=== PATIENT | male | born 1950 | race African-American/Black ===

== ENCOUNTER 2020-01-24 05:39 | Inpatient (IN) | payer MEDICARE ==
[2020-01-24] VITALS (36 sets, daily range): BP systolic 76–173; BP diastolic 47–97; Ht 167.6 cm; Wt 70.3 kg
[~2020-01-24] VITALS: Ht 167.6 cm; Wt 70.3 kg
--- NOTE | ~2020-01-24 | EC ---
PATIENT:KACI FRANCISCO DATE OF SERVICE: 01/24/20 SEX: M MEDICAL RECORD: [id number] DATE OF : [birth year] LOC[place] [place] AGE OF PATIENT: 69 ADMISSION DATE: 01/24/20 REFERRING PHYSICIAN: INTERPRETING PHYSICIAN: LONNY SANCHEZ MD ECHOCARDIOGRAM REPORT ECHO CHARGES 4 ECHO COMPLETE Date: 01/24/20 CLINICAL DIAGNOSIS: POST CODE ECHOCARDIOGRAPHIC MEASUREMENTS (adult normal given) AC root (d.<3.7cm) 3.2 cm LV Septum d (<1.2 cm> 1.0 cm Valve Excursion 1.8 cm LV Septum (systole) 1.1 cm Left Atria (s.<4.0cm> 3.7 cm LVPW d(<1.2cm) 0.8 cm RV (d.<2.3cm) 2.8 cm LVPW (sytole) 0.9 cm LV diastole(<5.6CM) 3.8 cm MV E-F(>70mm/sec) cm LV systole 3.1 cm LVOT Diameter 2.1 cm MV exc.(>10mm) cm Est.ejection fraction (50-75%) % DOPPLER: LVIT cm/sec A 33 cm/sec E 55 cm/sec LA cm/sec RVSP 19.1 mmHg LVOT 137 cm/sec AOP1/2T m/s Asc. Ao 158 cm/sec RVOT 121 cm/sec RA cm/sec PA 82 cm/sec AV Gradient Peak 10.0 mmHg AV Mean 5.4 mmHg AV Area 3.2 cm MV Gradient Peak 6.1 mmHg MV Mean 2.7 mmHg MV Area cm COMMENTS: Professor Sculpture: Srinivasan [facility] Paperboard Boxes Estimator: 1 Dr. Sanchez TAPE# PACS Pericardial Effusion N DATE OF SERVICE: 01/24/2020 PROCEDURE: Echocardiogram. FINDINGS: 1. Left ventricular chamber size is within normal limits. Left ventricular systolic function is lower limits of normal at 45% to 50%. 2. Left atrium, right atrium, right ventricle chamber sizes are within normal limits. 3. Valvular structures have normal structure and motion. ECHOCARDIOGRAM REPORT [id number] KACI FRANCISCO 4. Doppler interrogation reveals no significant valvular insufficiency or stenosis. Pulmonary systolic pressure is estimated at 19 mmHg. 5. No evidence of pericardial effusion or left ventricular thrombus. TRANSINT:[id number] Voice Confirmation ID: [id number] DOCUMENT ID: [id number] LONNY SANCHEZ MD CC: [id number] DICTATION DATE: 01/24/20 1245 LIVESTOCK INSPECTOR: 01/24/20 1727 ADM IN [place] [id number] [place] [id number]
--- NOTE | ~2020-01-24 | CN ---
PATIENT NAME:KACI FRANCISCO MEDICAL RECORD: [id number] : 54 LOCATION:[facility].2303 ADMIT DATE: 01/24/20 ACCOUNT: [id number] CONSULTING PHYSICIAN: LONNY HINTON MD REFERRING PHYSICIAN: KENYON FORREST MD DATE OF CONSULTATION: 01/26/2020 DIAGNOSES: 1. Atrial fibrillation with rapid ventricular response. 2. Non-Q-wave myocardial infarction. 3. Diabetes. 4. Hypertension. 5. Peripheral vascular disease. 6. Status post arrest. HISTORY OF PRESENT ILLNESS: This is a 69-year-old gentleman who was transferred here from [place] following cardiopulmonary arrest. He last night went into atrial fibrillation with rapid ventricular response. His troponin was initially normal. His troponin has now gone to 3. His heart is back in rhythm. He has not received any cardiac medications. He was just extubated today. Swallow study has been yet to be obtained. He does have a metabolic encephalopathy and questionable hypoxic brain injury as well as renal failure in conjunction with the cardiopulmonary arrest that he sustained. PHYSICAL EXAMINATION: CONSTITUTIONAL/GENERAL APPEARANCE: Well nourished, well developed, appears stated age. EYES: Lids and conjunctivae noninjected. No discharge. No pallor. ENT: Lips within normal limit. No cyanosis. No pallor. NECK: Carotid arteries, bilateral normal upstroke. No bruits. No thrills. No jugular venous pressure or distention. CERVICAL LYMPH NODES: Nontender. Nonenlarged. THYROID: Not enlarged. No nodules. CARDIOVASCULAR: Precordial exam, nondisplaced. No heaves or pericardial thrills. Rate and rhythm, regular. Heart sounds, normal S1, normal S2. No S3, no gallop, no rub. Systolic murmur, not heard. Diastolic murmur, not heard. RESPIRATORY: Respiratory effort, unlabored. Normal curvature. No thoracic deformity. No chest wall tenderness. Percussion, resonant. Auscultation, clear. No wheezes, no rales, no rhonchi. ABDOMEN: Soft, nondistended, nontender. No abdominal pain, no vomiting and normal appetite. MUSCULOSKELETAL: No joint tenderness, normal gait, normal tone. SKIN: Warm and dry. OVERALL IMPRESSION: Most likely his cardiopulmonary arrest was secondary to arrhythmia. He is not on antiarrhythmic medications. We will give him Cordarone full IV load and start Cordarone as soon as he takes p.o. We will get an echocardiogram as well. TRANSINT:[id number] Voice Confirmation ID: [id number] DOCUMENT ID: [id number] CONSULT REPORT [id number] KACI FRANCISCO JEFFREY MD CC: [id number] DICTATION DATE: 01/26/20 1155 PERSONAL PROPERTY APPRAISER: 01/26/20 1424 ADM IN [facility] [address] [place] [address]
[2020-01-24 06:03] LABS: BASOPHILS 0.1 % (0-2); EOSINOPHILS 0 % (0-7); HEMATOCRIT 41.3 % (42.0-54.0); IMMATURE GRANULOCYTES 0.9 % (0-5); LYMPHOCYTES 11.9 % (15-50); MCH 25.8 pg (26.0-34.0); MCHC 31.5 g/dL (31.0-37.0); MCV 82.1 fL (80.0-100.0); MEAN PLATELET VOLUME 9.6 fL (7.4-10.4); MONOCYTES 3.8 % (2-11); NEUTROPHILS 83.3 % (40-80); PLATELET COUNT 223 10x3/uL (130-400); RBC 5.03 10x6/uL (4.20-6.10); RDW 16.9 % (11.5-14.5); WBC 14.1 10x3/uL (4.8-10.8)
[2020-01-24] MEDS ORDERED: ZESTRIL40 MG PO (06:30)
[2020-01-24] MEDS ORDERED: LEVEMIR IN100 UNITS/ SC (06:31)
--- NOTE | 2020-01-24 06:32 | NUR ---
PT FROM [facility] ([place] PRESENTS C/O VOMITIN FOR LAST SEVERAL DAYS AND C/O BACK PAIN. FOUND TO BE IN RENAL FAILURE W/BUN OF 57, CREATININE 3.3, AND POTASSIUM 10.2. AT 0417 PT CODED IN THEIR ER. PT RECEIVED 3MG OF EPI 1:71082, 450MG AMIODARONE, 1G CALCIUM CHLORIDE, 2 AMPS SODIUM BICARB, 2 AMPS D50W, AND 10U OF INSULIN IV. AT 0433 ROSC ACHIEVED. PT ARRIVED HERE VIA SURVIVAL FLIGHT. ENROUTE HAD RECEIVED 3 X 100MG DOSES OF KETAMINE. ARRIVES INTUBATED W/7.5 ET TUBE AND 18GA IN LEFT EXTERNAL JUGULAR.
[2020-01-24 06:46] LABS: ALBUMIN 3.4 g/dL (3.4-5.0); ANION GAP 25.1 mmol/L (8-16); BILIRUBIN - TOTAL 0.54 mg/dL (0.2-1.3); CALCIUM 9.7 mg/dL (8.5-10.1); CREATININE - SERUM 3.7 mg/dL (0.6-1.3); PROTEIN - SERUM 7.3 g/dL (6.4-8.2)
[2020-01-24 06:51] LABS: POTASSIUM - SERUM 8.1 mmol/L (3.5-5.1)
[2020-01-24 06:52] LABS: BILIRUBIN NEGATIVE (NEGATIVE); GLUCOSE 1000 mg/dL (NEGATIVE); KETONE NEGATIVE (NEGATIVE); NITRITE NEGATIVE (NEGATIVE); SPECIFIC GRAVITY 1.015 (1.005-1.020); UROBILINOGEN NORMAL (NORMAL)
[2020-01-24 06:53] LABS: UDS - AMPHET NEGATIVE QUAL (NEGATIVE); UDS - BARB NEGATIVE QUAL (NEGATIVE); UDS - BENZO NEGATIVE QUAL (NEGATIVE); UDS - COCAINE NEGATIVE QUAL (NEGATIVE); UDS - OPIATE NEGATIVE QUAL (NEGATIVE); UDS - PCP NEGATIVE QUAL (NEGATIVE); UDS - THC NEGATIVE QUAL (NEGATIVE)
[2020-01-24 06:58] LABS: BACTERIA FEW /hpf (NEGATIVE); EPITHELIAL CELLS 0-5 /hpf (0-5); RED CELLS - URINE 0-5 /hpf (0-5); WHITE CELLS - URINE RARE /hpf (NEGATIVE)
--- NOTE | 2020-01-24 07:33 | NUR ---
NG TUBE INSERTED PRIOR TO ARRIVAL BY [place] STAFF.
--- NOTE | 2020-01-24 07:34 | NUR ---
REPORT TO KELLEY MADRID.
--- NOTE | 2020-01-24 07:45 | NUR ---
PT ARRIVED TO ICU ON ER STRETCHER. ACCOMPANIED BY TWO NURSES AND RT. MOVED OVER TO ICU BED AND ATTACHED TO ICU MONITORS. ADMISSION ASSESSMENT COMPLETED. PT NON RESPONSIVE TO PAINFUL STIMULI. SEDATION TURNED OFF TO SEE IF PT WILL WAKE UP. SINUS TACH ON THE MONITOR. WILL CONTINUE TO MONITOR
--- NOTE | 2020-01-24 08:15 | NUR ---
ARIANE ARGUETA IN ROOM WITH PT. UPDATE GIVEN. WILL CONTINUE TO MONITOR
--- NOTE | 2020-01-24 08:18 | NUR ---
BRITANY FONTENOT CALLED TO GET CONSENT FOR CENTRAL LINE PLACEMENT BY DR DAVIDSON. CONSENT GIVEN AND VERIFIED BY TWO NURSES. DR DAVIDSON PAGED.
--- NOTE | 2020-01-24 08:22 | NUR ---
DR DAVIDSON ON UNIT. CONSULTATION ABOUT CENTRAL LINE PLACEMENT DISCUSSED. WILL CONTINUE TO MONITOR
--- NOTE | 2020-01-24 09:30 | NUR ---
MAINTAINENCE IN ROOM TO FIX BROKEN SINK.
--- NOTE | 2020-01-24 09:35 | NUR ---
DR FORREST IN ROOM. UPDATE GIVEN. WILL CONTINUE TO MONITOR
--- NOTE | 2020-01-24 09:53 | NUR ---
PT ABOUT TO RECEIVE DIALYSIS. BEING HOOKED UP TO DIALYSIS MACHINE. WILL CONTINUE TO MONITOR
[2020-01-24 10:13] LABS: % SATURATION 31 % (15-55); IRON 63 ug/dl (35-150); TOTAL IRON BIND CAPACITY 199 ug/dl (260-445); UNSAT IRON BIND CAPACITY 136 ug/dl (150-375)
[2020-01-24 13:34] LABS: CALCIUM 8.4 mg/dL (8.5-10.1); CHOL - HDL RATIO 3.5 ratio (2.3-4.9); MAGNESIUM - SERUM 2.2 mg/dL (1.8-2.4); PHOSPHOROUS 6.2 mg/dL (2.5-4.9)
[2020-01-24 13:36] LABS: ANION GAP 24.6 mmol/L (8-16); CREATININE - SERUM 2.3 mg/dL (0.6-1.3); POTASSIUM - SERUM 4.6 mmol/L (3.5-5.1)
--- NOTE | 2020-01-24 14:04 | NUR ---
FAMILY IN ROOM. UPDATE GIVEN. WILL CONTINUE TO MONITOR
--- NOTE | 2020-01-24 17:39 | NUR ---
LAB CALLED POSITIVE FLU A ON THIS PT. PT ALREADY ON DROPLET ISOLATION PROTOCOL
--- NOTE | 2020-01-24 18:35 | MORECARE ---
CASE MANAGEMENT DISCHARGE SUMMARY PATIENT: KACI FRANCISCO UNIT: [id number] ADM DATE: 01/24/20 AGE: 69 : 52 SEX: M ROOM/BED: D.2303 AUTHOR: JENNIFER DAY PHYSICIAN: REFERRING PHYSICIAN: KENYON FORREST MD DATE OF SERVICE: 01/24/20 Discharge Plan Patient Name: KACI FRANCISCO Facility: [facility]:[place] : 1950 Planned Disposition: Home Anticipated Discharge Date: Discharge Date: Expected LOS: Initial Reviewer: [email or web address] Initial Review Date: 01/24/2020 Generated: 01/24/20 7:35 pm Patient Name: KACI FRANCISCO Page 94006 at 1835 All edits/amendments must be made on the electronic document DICTATION DATE: 01/24/201834 FISHER: PAUL 01/24/201834 RPT#: [id number] DC DATE: STATUS: ADM IN [facility] [address] [place] [address] END OF REPORT
--- NOTE | 2020-01-24 18:43 | MORECARE ---
CASE MANAGEMENT DISCHARGE SUMMARY PATIENT: KACI FRANCISCO UNIT: [id number] ADM DATE: 01/24/20 AGE: 69 : 52 SEX: M ROOM/BED: D.2303 AUTHOR: JENNIFER DAY PHYSICIAN: REFERRING PHYSICIAN: KENYON FORREST MD DATE OF SERVICE: 01/24/20 Discharge Plan Patient Name: KACI FRANCISCO [facility] [facility] 1950 Planned Disposition: Home Anticipated Discharge Date: Discharge Date: Expected LOS: Initial Reviewer: [email or web address] Initial Review Date: 01/24/2020 Generated: 01/24/20 7:42 pm DCPIA - Discharge Planning Initial Assessment Updated by [email or web address]: Mago Loaiza on 01/24/20 6:38 pm * Is the patient Alert and Oriented? No * How many steps to enter\exit or inside your home? 4-6 * PCP [facility] * Pharmacy [facility] * Preadmission Environment Home with Family * ADLs Independent * Other Equipment UNKNOWN * List name and contact numbers for known caregivers / representatives who currently or will assist patient after discharge: BRITANY FONTENOT - GIRLFRIEND- [phone] TANVI FRANCISCO - SON - [phone] BETHANY Castro DAUGHTER- [phone] * Verbal permission to speak to the caregivers and representatives has been obtained from the patient. N/A * Community resources currently utilized None * Additional services required to return to the preadmission environment? No * Can the patient safely return to the preadmission environment? Yes * Has this patient been hospitalized within the prior 30 days at any hospital? No Last DP export: 01/24/20 5:35 pm Patient Name: KACI FRANCISCO Page 54481 at 1843 All edits/amendments must be made on the electronic document DICTATION DATE: 01/24/201841 CONCRETE PAVER: PAUL 01/24/201841 RPT#: [id number] DC DATE: STATUS: ADM IN [facility] [address] [place] [address] END OF REPORT
--- NOTE | 2020-01-24 18:50 | MORECARE ---
CASE MANAGEMENT DISCHARGE SUMMARY PATIENT: KACI FRANCISCO UNIT: [id number] ADM DATE: 01/24/20 AGE: 69 : 52 SEX: M ROOM/BED: D.2303 AUTHOR: SHAY,DOC PHYSICIAN: REFERRING PHYSICIAN: KENYON FORREST MD DATE OF SERVICE: 01/24/20 Discharge Plan Patient Name: KACI FRANCISCO Facility: [facility]:[place] : 1950 Planned Disposition: Home Anticipated Discharge Date: Discharge Date: Expected LOS: Initial Reviewer: [email or web address] Initial Review Date: 01/24/2020 Generated: 01/24/20 7:50 pm Comments DCP- Discharge Planning Updated by [email or web address]: Mago Loaiza on 01/24/20 5:[address] Patient Name: KACI FRANCISCO Admission Status: ER Accout number: [id number] Admission Date: 01-24-2020 : 1950 Admission Diagnosis: Attending: KENYON FORREST Current LOS: 1 Anticipated DC Date: Planned Disposition: Home Primary Insurance: MEDICARE A & B Discharge Planning Comments: CM met with patient's daughter Tory to complete initial dc planning assessment. CM educated patient on the CM role and verbal consent given by patient to complete assessment. CM verified patient's address, phone number, and emergency contact phone numbers. Patient lives at home with girlfriend Britany At discharge patient plans to return home. Uncertain of discharge needs at this time. Tory stated she didn't know if patient has medical equipment at home or home health. Tory stated that Britany is on her way here. CM gave Tory a card with CM information on it to have Britany to call. CM will continue to follow and will assist as needed with dc plans/needs. Sand Slinger Operator: Mago Loaiza DCPIA - Discharge Planning Initial Assessment Updated by [email or web address]: Mago Loaiza on 01/24/20 6:38 pm * Is the patient Alert and Oriented? No * How many steps to enter\exit or inside your home? 4-6 * PCP [facility] * Pharmacy [facility] * Preadmission Environment Home with Family * ADLs Independent * Other Equipment UNKNOWN * List name and contact numbers for known caregivers / representatives who currently or will assist patient after discharge: BRITANY FONTENOT - GIRLFRIEND- [phone] TANVI FRANCISCO - SON - [phone] TORY FRANCISCO - DAUGHTER- [phone] * Verbal permission to speak to the caregivers and representatives has been obtained from the patient. N/A * Community resources currently utilized None * Additional services required to return to the preadmission environment? No * Can the patient safely return to the preadmission environment? Yes * Has this patient been hospitalized within the prior 30 days at any hospital? No Last DP export: 01/24/20 5:43 pm Patient Name: KACI FRANCISCO Page 01262 at 1850 All edits/amendments must be made on the electronic document DICTATION DATE: 01/24/201849 ELECTRICAL TROUBLESHOOTER: PAUL 01/24/201849 RPT#: [id number] DC DATE: STATUS: ADM IN [facility] [address] [place] [address] END OF REPORT
--- NOTE | 2020-01-24 19:15 | NUR ---
Report taken from Shannan Camacho RN. Patient care assumed at this time. Patient on vent A/C rate of 20, Fi02 100%, TV 500, PEEP of 5. Pupils are equal but sluggish to react. The patient arouses to deep stimuli however does not follow commands. No sedation in use. RT IJ trialysis. LT EJ 18g infusing Bicarb gtt at 75 ml/hr. Gordon cath in place. NGT to RT nare. Bed in low position. Monitoring equipment on and functioning properly. VSS. Will continue to monitor closely.
--- NOTE | 2020-01-24 21:05 | NUR ---
Family at bedside. Updated about patient condition and discussed further plan of care with son. Denies any other questions at this time.
[2020-01-25] VITALS (24 sets, daily range): BP systolic 86–142; BP diastolic 53–80
--- NOTE | 2020-01-25 | NUR ---
Patient with a finger stick blood sugar of 387. 16 units of humulin R to be given SC.
--- NOTE | 2020-01-25 01:34 | NUR ---
Patient resting comfortably on vent. No obvious signs of distress noted. Arouses to verbal stimuli however does not follow commands. VSS. Will continue to monitor.
--- NOTE | 2020-01-25 04:18 | NUR ---
RT at bedside at this time. Patient appears to be resting comfortably on vent with no obvious signs of distress noted. Opens eyes to verbal stimuli. VSS. Will continue to monitor.
--- NOTE | 2020-01-25 05:42 | NUR ---
Bath and full linen change complete at this time. Patient tolerated well. Bed in low position.
[2020-01-25 06:22] LABS: HEMATOCRIT 37.4 % (42.0-54.0); HEMOGLOBIN 12.1 g/dL (13.5-17.5); MCH 25.3 pg (26.0-34.0); MCHC 32.4 g/dL (31.0-37.0); MCV 78.2 fL (80.0-100.0); MEAN PLATELET VOLUME 10.5 fL (7.4-10.4); PLATELET COUNT 133 10x3/uL (130-400); RBC 4.78 10x6/uL (4.20-6.10); RDW 16.3 % (11.5-14.5); WBC 21.3 10x3/uL (4.8-10.8)
[2020-01-25 06:27] LABS: BILIRUBIN - TOTAL 0.47 mg/dL (0.2-1.3); CALCIUM 7.7 mg/dL (8.5-10.1); PROTEIN - SERUM 6.3 g/dL (6.4-8.2)
--- NOTE | 2020-01-25 06:59 | NUR ---
NOTIFIED DR. PALMA ABOUT POTASSIUM RESULT OF 7. STATED HE WILL PUT ORDERS IN. WILL CONTINUE TO MONITOR.
[2020-01-25 09:16] LABS: EOSINOPHILS 1 % (0-7); LYMPHOCYTES 13 % (15-50); MONOCYTES 9 % (2-11); NEUTROPHILS 75 % (40-80); PLATELET ESTIMATE NORMAL
[2020-01-25 09:17] LABS: ANISOCYTOSIS OCC
[2020-01-25 10:10] LABS: ANA REFLEX - DBL STRANDED DNA <1 IU/mL (0-9); ANA REFLEX - DIRECT Negative (Negative)
[2020-01-25 11:09] LABS: HEPATITIS C ANTIBODY <0.1 S/CO RAT (0.0-0.9)
--- NOTE | 2020-01-25 15:26 | MORECARE ---
CASE MANAGEMENT DISCHARGE SUMMARY PATIENT: KACI FRANCISCO UNIT: [id number] ADM DATE: 01/24/20 AGE: 69 : 52 SEX: M ROOM/BED: D.2303 AUTHOR: SHAY,DOC PHYSICIAN: REFERRING PHYSICIAN: KENYON FORREST MD DATE OF SERVICE: 01/25/20 Discharge Plan Patient Name: KACI FRANCISCO Facility: [facility]:[place] : 1950 Planned Disposition: Home Anticipated Discharge Date: Discharge Date: Expected LOS: Initial Reviewer: [email or web address] Initial Review Date: 01/24/2020 Generated: 01/25/20 4:26 pm Comments DCP- Discharge Planning Updated by [email or web address]: Mago Loaiza on 01/25/20 2:[address] CM received call this am from Britany patient's girlfriend. She stated that the patient has a walker, cane and wheelchair at home. He did not have any home health services prior to admission. She stated that patient has not been in the hospital in last 30days. CM will continue to follow and assist as needed with discharge planning / needs. DCP- Discharge Planning Updated by [email or web address]: Mago Loaiza on 01/24/20 5:[address] Patient Name: KACI FRANCISCO Admission Status: ER Accout number: [id number] Admission Date: 01-24-2020 : 1950 Admission Diagnosis: Attending: KENYON FORREST Current LOS: 1 Anticipated DC Date: Planned Disposition: Home Primary Insurance: MEDICARE A & B Discharge Planning Comments: CM met with patient's daughter Tory to complete initial dc planning assessment. CM educated patient on the CM role and verbal consent given by patient to complete assessment. CM verified patient's address, phone number, and emergency contact phone numbers. Patient lives at home with girlfriend Britany At discharge patient plans to return home. Uncertain of discharge needs at this time. Tory stated she didn't know if patient has medical equipment at home or home health. Tory stated that Britany is on her way here. CM gave Tory a card with CM information on it to have Britany to call. CM will continue to follow and will assist as needed with dc plans/needs. Edge Trimmer: Mago Loaiza DCPIA - Discharge Planning Initial Assessment Updated by [email or web address]: Mago Loaiza on 01/24/20 6:38 pm * Is the patient Alert and Oriented? No * How many steps to enter\exit or inside your home? 4-6 * PCP [facility] * Pharmacy [facility] * Preadmission Environment Home with Family * ADLs Independent * Other Equipment UNKNOWN * List name and contact numbers for known caregivers / representatives who currently or will assist patient after discharge: BRITANY FONTENOT - GIRLFRIEND- [phone] TANVI Castor SON - [phone] TORY FRANCISCO - DAUGHTER- [phone] * Verbal permission to speak to the caregivers and representatives has been obtained from the patient. N/A * Community resources currently utilized None * Additional services required to return to the preadmission environment? No * Can the patient safely return to the preadmission environment? Yes * Has this patient been hospitalized within the prior 30 days at any hospital? No Last DP export: 01/24/20 5:50 pm Patient Name: KACI FRANCISCO Page 40268 at 1526 All edits/amendments must be made on the electronic document DICTATION DATE: 01/25/201525 CRITICAL CARE UNIT NURSE: PAUL 01/25/201525 RPT#: [id number] DC DATE: STATUS: ADM IN [facility] [address] [place] [address] END OF REPORT
[2020-01-25 17:08] LABS: SPE - A/G RATIO 1.2 (0.7-1.7); SPE - ALBUMIN 3.4 g/dL (2.9-4.4); SPE - ALPHA-1 GLOBULIN 0.2 g/dL (0.0-0.4); SPE - ALPHA-2 GLOBULIN 0.8 g/dL (0.4-1.0); SPE - GAMMA GLOBULIN 0.9 g/dL (0.4-1.8); SPE - M-SPIKE Not Observed g/dL (Not Observed); SPE - TOTAL PROTEIN 6.3 g/dL (6.0-8.5)
--- NOTE | 2020-01-25 21:25 | NUR ---
Patient repositioned for comfort to his back. Denies needs at this time. Bed in low position and call light within reach.
--- NOTE | 2020-01-25 23:27 | NUR ---
Renal paged. EKG shows atrial fib with RVR. No known past history.
--- NOTE | 2020-01-25 23:48 | NUR ---
Renal paged a second time. No call back recieved for first page.
[2020-01-26] VITALS (24 sets, daily range): BP systolic 103–196; BP diastolic 63–93
--- NOTE | 2020-01-26 00:54 | NUR ---
Cardiology consulted per renal. Cardiology paged at this time.
--- NOTE | 2020-01-26 01:25 | NUR ---
Page not returned by Dr Sanchez however patient has converted back into a normal sinus rhythm without any intervention. Rate of 96. Will continue to monitor.
--- NOTE | 2020-01-26 05:12 | NUR ---
Patient had large loose brown stool. Full linen change complete at this time. Turned and repositioned for comfort. Bed locked and in low position. Call light within reach.
[2020-01-26 05:27] LABS: BASOPHILS 0 % (0-2); EOSINOPHILS 0 % (0-7); HEMATOCRIT 33.3 % (42.0-54.0); HEMOGLOBIN 10.7 g/dL (13.5-17.5); IMMATURE GRANULOCYTES 0.3 % (0-5); LYMPHOCYTES 10.6 % (15-50); MCH 25.5 pg (26.0-34.0); MCHC 32.1 g/dL (31.0-37.0); MCV 79.3 fL (80.0-100.0); MEAN PLATELET VOLUME 10.8 fL (7.4-10.4); MONOCYTES 3.4 % (2-11); NEUTROPHILS 85.7 % (40-80); PLATELET COUNT 119 10x3/uL (130-400); RDW 16.1 % (11.5-14.5); WBC 18.7 10x3/uL (4.8-10.8)
[2020-01-26 06:02] LABS: ALBUMIN 3.1 g/dL (3.4-5.0); BILIRUBIN - TOTAL 0.8 mg/dL (0.2-1.3); CALCIUM 7.9 mg/dL (8.5-10.1); CREATININE - SERUM 3.8 mg/dL (0.6-1.3); PROTEIN - SERUM 6.1 g/dL (6.4-8.2); VANCOMYCIN - RANDOM 13.6 ug/mL (10.0-20.0)
[2020-01-26 06:14] LABS: ANION GAP 14.1 mmol/L (8-16); POTASSIUM - SERUM 5.1 mmol/L (3.5-5.1)
[2020-01-26 06:53] LABS: LIPASE 119 U/L (73-393)
[2020-01-26 06:59] LABS: AMYLASE - SERUM 335 U/L (25-115)
[2020-01-26 08:38] LABS: INR 1.4 (0.85-1.17)
[2020-01-26 12:16] LABS: ANION GAP 11.7 mmol/L (8-16); CALCIUM 7.8 mg/dL (8.5-10.1); CARBON DIOXIDE 28.3 mmol/L (21.0-32.0); CREATININE - SERUM 3.8 mg/dL (0.6-1.3)
--- NOTE | 2020-01-26 12:36 | NUR ---
Nutrition follow-up: Pt extubated / NPO until cleared for diet by speech Labs reviewed Wt: 155# When diet advances recommend renal RDN following.
--- NOTE | 2020-01-26 13:30 | NUR ---
REC'D REPORT AND REUSMED CARE, SLEEPING, AROUSEABLE TO VERBAL STIMULI, VSS, O2 VIA NC AT 4L, FOLLOWS SIMPLE COMMANDS, DENIES PAIN, WILL CONTINUE WITH POC
--- NOTE | 2020-01-26 14:30 | NUR ---
PC FROM DR FARNSWORTH, STATED THAT PATIENT HAS DVT AND WOULD LIKE TO START TREATMENT, AFTER SPEAKING WITH DR. FORREST WHO WAS IN UNIT, DECISION MADE TO START HEPARIN GTT, NEW ORDER GIVEN
--- NOTE | 2020-01-26 15:00 | NUR ---
4000 UNIT BOLUS IV HEPARIN, AND HEPRAIN GTT INITIATED AT 800 UNITS/HR PER ORDER
[2020-01-26 15:24] LABS: HEMATOCRIT 32.9 % (42.0-54.0); HEMOGLOBIN 10.4 g/dL (13.5-17.5); MCH 25.1 pg (26.0-34.0); MCHC 31.6 g/dL (31.0-37.0); MCV 79.5 fL (80.0-100.0); MEAN PLATELET VOLUME 9.8 fL (7.4-10.4); RBC 4.14 10x6/uL (4.20-6.10); RDW 16.2 % (11.5-14.5); WBC 17.1 10x3/uL (4.8-10.8)
[2020-01-26 15:26] LABS: INR 1.37 (0.85-1.17); PROTIME 16.7 SECONDS (11.6-15.0)
--- NOTE | 2020-01-26 16:00 | NUR ---
FAMILY AT BEDSIDE, STATUS UPDATED, NO OTHER NEEDS AT THIS TIME, I AND O'S COMPLETED
--- NOTE | 2020-01-26 17:41 | NUR ---
spoke with Nesha Dunbar renal PC ANALYST and order confirmed to hold dialysis today.
--- NOTE | 2020-01-26 18:00 | NUR ---
CALLED TO ROOM BEDPAN PLACED, SMALL DIARRHEA STOOL TO [place], SKIN CARE AND LINEN CHANGE COMPLETED
--- NOTE | 2020-01-26 19:00 | NUR ---
REPORT RECEIVED, PT DISORINETED TO TIME AND PLACE. REORIENTED NEEDED. PT RESTING IN BED, NO ACUTE DISTRESS NOTED. PIV IN LT HAND, RT IJ TRIALYSIS PORT INFUSING, SEE IV FLOWSHEET. ASSESSMENT COMPLETED, SEE FLOWSHEET. WILL CONTINUE TO MONITOR.
--- NOTE | 2020-01-26 21:00 | NUR ---
PT FAMILY IN ROOM AT THIS TIME, WILL CONTINUE TO MONITOR.
--- NOTE | 2020-01-26 23:00 | NUR ---
REPOSITIONED FOR COMFORT, NO ACUTE DISTRESS NOTED. WILL CONTINUE TO MONITOR.
[2020-01-27] VITALS (12 sets, daily range): BP systolic 120–147; BP diastolic 65–83
--- NOTE | 2020-01-27 01:00 | NUR ---
PT RESTING IN BED, DISORIENTED TO PLACE AND SITUATION.
--- NOTE | 2020-01-27 03:00 | NUR ---
PT RESTING IN BED AT THIS TIME, NO ACUTE DISTRESS NOTED
--- NOTE | 2020-01-27 05:00 | NUR ---
PT LAYING IN BED, PERIODS OF APNEA NOTED WHILE SLEEPING. WILL CONTINUE TO MONITOR.
[2020-01-27 05:58] LABS: BASOPHILS 0.1 % (0-2); EOSINOPHILS 0.4 % (0-7); HEMATOCRIT 32.1 % (42.0-54.0); HEMOGLOBIN 10.1 g/dL (13.5-17.5); IMMATURE GRANULOCYTES 0.3 % (0-5); LYMPHOCYTES 12.9 % (15-50); MCH 24.9 pg (26.0-34.0); MCHC 31.5 g/dL (31.0-37.0); MCV 79.1 fL (80.0-100.0); MEAN PLATELET VOLUME 10.2 fL (7.4-10.4); MONOCYTES 4.4 % (2-11); NEUTROPHILS 81.9 % (40-80); PLATELET COUNT 116 10x3/uL (130-400); RBC 4.06 10x6/uL (4.20-6.10); WBC 13.8 10x3/uL (4.8-10.8)
[2020-01-27 05:59] LABS: ALBUMIN 2.7 g/dL (3.4-5.0); BILIRUBIN - TOTAL 0.6 mg/dL (0.2-1.3); CALCIUM 7.7 mg/dL (8.5-10.1); CARBON DIOXIDE 24.6 mmol/L (21.0-32.0); MAGNESIUM - SERUM 2.2 mg/dL (1.8-2.4); PHOSPHOROUS 3.4 mg/dL (2.5-4.9); PROTEIN - SERUM 5.9 g/dL (6.4-8.2); VANCOMYCIN - RANDOM 13.3 ug/mL (10.0-20.0)
[2020-01-27 06:02] LABS: ANION GAP 13.6 mmol/L (8-16); POTASSIUM - SERUM 4.2 mmol/L (3.5-5.1)
[2020-01-27 15:10] LABS: UPE RAND - ALBUMIN 37.7 % (()); UPE RAND - ALPHA 1 GLOBULIN 7.9 % (()); UPE RAND - BETA GLOBULIN 27.9 % (()); UPE RAND - GAMMA GLOBULIN 12.5 % (())
[2020-01-28] VITALS: BP 135/75
[2020-01-28 04:00] VITALS: BP 149/77
[2020-01-28 06:34] LABS: BASOPHILS 0.3 % (0-2); EOSINOPHILS 1.2 % (0-7); HEMATOCRIT 34.3 % (42.0-54.0); HEMOGLOBIN 11.1 g/dL (13.5-17.5); IMMATURE GRANULOCYTES 0.2 % (0-5); LYMPHOCYTES 14.5 % (15-50); MCH 25.5 pg (26.0-34.0); MCHC 32.4 g/dL (31.0-37.0); MCV 78.7 fL (80.0-100.0); MEAN PLATELET VOLUME 10.1 fL (7.4-10.4); MONOCYTES 8.3 % (2-11); NEUTROPHILS 75.5 % (40-80); PLATELET COUNT 120 10x3/uL (130-400); RBC 4.36 10x6/uL (4.20-6.10); RDW 15.9 % (11.5-14.5)
[2020-01-28 07:06] LABS: ALBUMIN 2.9 g/dL (3.4-5.0); BILIRUBIN - TOTAL 0.71 mg/dL (0.2-1.3); CALCIUM 7.7 mg/dL (8.5-10.1); CARBON DIOXIDE 21.1 mmol/L (21.0-32.0); POTASSIUM - SERUM 4.1 mmol/L (3.5-5.1); PROTEIN - SERUM 6.5 g/dL (6.4-8.2); VANCOMYCIN - RANDOM 13.6 ug/mL (10.0-20.0)
[2020-01-28 07:09] LABS: CREATININE - SERUM 2.2 mg/dL (0.6-1.3)
--- NOTE | 2020-01-28 07:25 | NUR ---
ASSESSMENT DONE. DENIES NEEDS
[2020-01-28 09:10] VITALS: BP 159/81
--- NOTE | 2020-01-28 11:52 | MORECARE ---
CASE MANAGEMENT DISCHARGE SUMMARY PATIENT: KACI FRANCISCO UNIT: [id number] ADM DATE: 01/24/20 AGE: 69 : 54 SEX: M ROOM/BED: D.2134 AUTHOR: SHAY,DOC PHYSICIAN: REFERRING PHYSICIAN: KENYON FORREST MD DATE OF SERVICE: 01/28/20 Discharge Plan Patient Name: KACI FRANCISCO Facility: [facility]:[place] : 1950 Planned Disposition: Home Anticipated Discharge Date: Discharge Date: Expected LOS: Initial Reviewer: [email or web address] Initial Review Date: 01/24/2020 Generated: 01/28/20 12:51 pm Comments DCP- Discharge Planning Updated by [email or web address]: Mago Loaiza on 01/28/20 10:[address] CM called and spoke with Tanvi Francisco (son) [phone] regarding senior living placement upon discharge. Tanvi stated that he would like for him to go to [facility] in [facility]. CM contacted [place] [phone] with [facility]. She stated to fax clinical to her [phone] and she would forward to [facility] and she would come to see patient. CM will fax records. CM will will follow and assist as needed with discharge planning / needs. DCP- Discharge Planning Updated by [email or web address]: Mago Loaiza on 01/25/20 2:[address] CM received call this am from Britany patient's girlfriend. She stated that the patient has a walker, cane and wheelchair at home. He did not have any home health services prior to admission. She stated that patient has not been in the hospital in last 30days. CM will continue to follow and assist as needed with discharge planning / needs. DCP- Discharge Planning Updated by [email or web address]: Mago Loaiza on 01/24/20 5:[address] Patient Name: KACI FRANCISCO Admission Status: ER Accout number: [id number] Admission Date: 01-24-2020 : 1950 Admission Diagnosis: Attending: KENYON FORREST Current LOS: 1 Anticipated DC Date: Planned Disposition: Home Primary Insurance: MEDICARE A & B Discharge Planning Comments: CM met with patient's daughter Tory to complete initial dc planning assessment. CM educated patient on the CM role and verbal consent given by patient to complete assessment. CM verified patient's address, phone number, and emergency contact phone numbers. Patient lives at home with girlfriend Britany At discharge patient plans to return home. Uncertain of discharge needs at this time. Tory stated she didn't know if patient has medical equipment at home or home health. Tory stated that Britany is on her way here. CM gave Tory a card with CM information on it to have Britany to call. CM will continue to follow and will assist as needed with dc plans/needs. Rn Outpatient Surgery: Mago Loaiza DCPIA - Discharge Planning Initial Assessment Updated by [id number]: Mago Loaiza on 01/24/20 6:38 pm * Is the patient Alert and Oriented? No * How many steps to enter\exit or inside your home? 4-6 * PCP [facility] * Pharmacy [facility] * Preadmission Environment Home with Family * ADLs Independent * Other Equipment UNKNOWN * List name and contact numbers for known caregivers / representatives who currently or will assist patient after discharge: BRITANY FONTENOT - GIRLFRIEND- [phone] TANVI FRANCISCO - SON - [phone] TORY FRANCISCO - DAUGHTER- [phone] * Verbal permission to speak to the caregivers and representatives has been obtained from the patient. N/A * Community resources currently utilized None * Additional services required to return to the preadmission environment? No * Can the patient safely return to the preadmission environment? Yes * Has this patient been hospitalized within the prior 30 days at any hospital? No Last DP export: 01/25/20 2:26 p Patient Name: KACI FRANCISCO Page 62457 at 1152 All edits/amendments must be made on the electronic document DICTATION DATE: 01/28/20 1151 SEWER DIGGER: PAUL 01/28/20 1151 RPT#: [id number] DC DATE: STATUS: ADM IN [facility] [address] [place] [address] END OF REPORT
--- NOTE | 2020-01-28 12:15 | MORECARE ---
CASE MANAGEMENT DISCHARGE SUMMARY PATIENT: KACI FRANCISCO UNIT: [id number] ADM DATE: 01/24/20 AGE: 69 : 52 SEX: M ROOM/BED: D.2134 AUTHOR: SHAY,DOC PHYSICIAN: REFERRING PHYSICIAN: KENYON FORREST MD DATE OF SERVICE: 01/28/20 Discharge Plan Patient Name: KACI FRANCISCO Facility: [facility]:[place] : 1950 Planned Disposition: Home Anticipated Discharge Date: Discharge Date: Expected LOS: Initial Reviewer: [email or web address] Initial Review Date: 01/24/2020 Generated: 01/28/20 1:15 pm Comments DCP- Discharge Planning Updated by [email or web address]: Mago Loaiza on 01/28/20 10:[address] CM called and spoke with Tanvi Francisco (son) [phone] regarding halfway placement upon discharge. Tanvi stated that he would like for him to go to [facility] in [facility]. CM contacted [place] [phone] with [facility]. She stated to fax clinical to her [phone] and she would forward to [facility] and she would come to see patient. CM will fax records. CM will will follow and assist as needed with discharge planning / needs. DCP- Discharge Planning Updated by [email or web address]: Mago Loaiza on 01/25/20 2:[address] CM received call this am from Britany patient's girlfriend. She stated that the patient has a walker, cane and wheelchair at home. He did not have any home health services prior to admission. She stated that patient has not been in the hospital in last 30days. CM will continue to follow and assist as needed with discharge planning / needs. DCP- Discharge Planning Updated by [email or web address]: Mago Loaiza on 01/24/20 5:[address] Patient Name: KACI FRANCISCO Admission Status: ER Accout number: [id number] Admission Date: 01-24-2020 : 1950 Admission Diagnosis: Attending: KENYON FORREST Current LOS: 1 Anticipated DC Date: Planned Disposition: Home Primary Insurance: MEDICARE A & B Discharge Planning Comments: CM met with patient's daughter Tory to complete initial dc planning assessment. CM educated patient on the CM role and verbal consent given by patient to complete assessment. CM verified patient's address, phone number, and emergency contact phone numbers. Patient lives at home with girlfriend Britany At discharge patient plans to return home. Uncertain of discharge needs at this time. Tory stated she didn't know if patient has medical equipment at home or home health. Tory stated that Britany is on her way here. CM gave Tory a card with CM information on it to have Britany to call. CM will continue to follow and will assist as needed with dc plans/needs. Facepiece Line Supervisor: Mago Loaiza DCPIA - Discharge Planning Initial Assessment Updated by [email or web address]: Mago Loaiza on 01/24/20 6:38 pm * Is the patient Alert and Oriented? No * How many steps to enter\exit or inside your home? 4-6 * PCP [facility] * Pharmacy [facility] * Preadmission Environment Home with Family * ADLs Independent * Other Equipment UNKNOWN * List name and contact numbers for known caregivers / representatives who currently or will assist patient after discharge: BRITANY FONTENOT - GIRLFRIEND- [phone] TANVI FRANCISCO - SON - [phone] TORY FRANCISCO - DAUGHTER- [phone] * Verbal permission to speak to the caregivers and representatives has been obtained from the patient. N/A * Community resources currently utilized None * Additional services required to return to the preadmission environment? No * Can the patient safely return to the preadmission environment? Yes * Has this patient been hospitalized within the prior 30 days at any hospital? No External Providers External Provider: Muna Garzon Next Contact Date: Service Request Date: Service Type: Resolution: Reviewer: Comments: Coverage Notice Reviewer: [id number] - Mago Loaiza Notice Issued Date-Time: 01/28/2020 11:10 Notice Type: Patient Choice Letter Notice Delivered To: Family Member Relationship to Patient: Son Blasting Clay Miner Name: TANVI FRANCISCO Delivery Method: PHONE - Phone Rhina Days: Prior Verbal Notification: Recipient Understood Notice: Yes Recipient Signature: Yes Med Rec Note Co-signed by Attending: Coverage Notice Comment: KENA Phillips DP export: 01/28/20 10:52 a Patient Name: KACI FRANCISCO Page 80610 at 1215 All edits/amendments must be made on the electronic document DICTATION DATE: 01/28/20 1215 BODY BUILDER APPRENTICE: APUL 01/28/20 1215 RPT#: [id number] DC DATE: STATUS: ADM IN [facility] [address] [place] [address] END OF REPORT
--- NOTE | 2020-01-28 12:51 | NUR ---
Nutrition Follow-up: Pt reports eating >50% of breakfast this AM. Noted ST reports oropharyngeal dysphagia and recs puree with honey thick liquids. Diet: Diabetic, Puree, Honey Thick Liquids No new wt; last wt: 155# (01/23) Last BM: 01/26 per chart Labs noted: Glu 174, Ca 7.7, Alb 2.9 Meds noted: NS @ 50, Humulin, Protonix -Encourage PO intake and honor food preferences within diet restrictions. -Need new wt; noted daily wts ordered. -RD following.
[2020-01-28 12:54] VITALS: BP 140/81
--- NOTE | 2020-01-28 15:43 | NUR ---
I have reviewed this patient and I concur with the Shift Assessment completed by the Licensed Practical Nurse today this shift.
[2020-01-28 17:50] VITALS: BP 157/82
--- NOTE | 2020-01-28 19:10 | NUR ---
BEDSIDE REPORT RECEIVED FROM DAY SHIFT, PT CARE ASSUMED. INTRODUCED SELF AND WROTE NAME ON BOARD. PT SITTING UP IN BED, WATCHING TV, AAOX4. DENIES ANY NEEDS AT THIS TIME. BED IN LOWEST POSITION, SR X2, CALL LIGHT WITHIN REACH. WILL CONTINUE TO MONITOR.
[2020-01-28 20:30] VITALS: BP 146/78
[2020-01-29 00:30] VITALS: BP 158/88
[2020-01-29 04:30] VITALS: BP 143/80
[2020-01-29 06:16] LABS: ALBUMIN 2.9 g/dL (3.4-5.0); ANION GAP 16.2 mmol/L (8-16); BILIRUBIN - TOTAL 0.61 mg/dL (0.2-1.3); CALCIUM 7.8 mg/dL (8.5-10.1); CARBON DIOXIDE 21.7 mmol/L (21.0-32.0); POTASSIUM - SERUM 3.9 mmol/L (3.5-5.1); PROTEIN - SERUM 6.8 g/dL (6.4-8.2); VANCOMYCIN - RANDOM 11.3 ug/mL (10.0-20.0)
[2020-01-29 06:25] LABS: HEMATOCRIT 33.9 % (42.0-54.0); HEMOGLOBIN 10.9 g/dL (13.5-17.5); MCH 25.5 pg (26.0-34.0); MCHC 32.2 g/dL (31.0-37.0); MCV 79.2 fL (80.0-100.0); MEAN PLATELET VOLUME 10.2 fL (7.4-10.4); RBC 4.28 10x6/uL (4.20-6.10); RDW 15.9 % (11.5-14.5); WBC 12.5 10x3/uL (4.8-10.8)
[2020-01-29 06:26] LABS: PLATELET COUNT 152 10x3/uL (130-400)
[2020-01-29 06:29] LABS: CREATININE - SERUM 1.6 mg/dL (0.6-1.3)
[2020-01-29 07:39] LABS: EOSINOPHILS 3 % (0-7); LYMPHOCYTES 25 % (15-50); MONOCYTES 12 % (2-11); NEUTROPHILS 60 % (40-80); PLATELET ESTIMATE NORMAL
[2020-01-29 08:58] VITALS: BP 147/77
--- NOTE | 2020-01-29 11:08 | NUR ---
HEPARIN INCREASED BY 100 UNITS PER LAB AND PROTOCAL. PT A/O X4. NO S/S OF DISTRESS. VSS. WILL CONTINUE TO MONITOR. BED LOW CALL LIGHT WITHIN REACH.
--- NOTE | 2020-01-29 11:40 | NUR ---
APTT ORDER PUT IN FOR 1630 FOR RATE CHANGE SIX HOUR PROTOCOL.
[2020-01-29 12:20] VITALS: BP 153/69
--- NOTE | 2020-01-29 12:43 | NUR ---
I have reviewed this patient and I concur with the Shift Assessment completed by the Licensed Practical Nurse today this shift.
--- NOTE | 2020-01-29 15:18 | NUR ---
ARU NOTE- Patient and family contacted and they stated the desire to go to an ARU closer to where they live in [place].
--- NOTE | 2020-01-29 17:02 | NUR ---
PT HAD BED BATH AND FULL LINEN CHANGE. PT A/O WITH SOME CONFUSION. VSS. FAMILY AT BEDSIDE. NO S/S OF DISTRESS AT THIS TIME. BED LOW CALL LIGHT WITHIN REACH, WILL CONTINUE TO MONITOR.
--- NOTE | 2020-01-29 17:31 | NUR ---
PT PTT 56.7 UPED 100UNITS PER PROTOCOL. NEW LAB DRAW PUT IN FOR 2229.
[2020-01-29 17:56] VITALS: BP 136/58
--- NOTE | 2020-01-29 19:10 | NUR ---
BEDSIDE REPORT RECEIVED FROM DAY SHIFT, PT CARE ASSUMED. WROTE NAME ON BOARD. PT SITTING UP IN BED, WATCHING TV AND VISITING WITH SISTER AT BEDSIDE, AAOX4. DENIES ANY NEEDS AT THIS TIME. BED IN LOWEST POSITION, SR X2, CALL LIGHT WITHIN REACH. WILL CONTINUE TO MONITOR.
[2020-01-29 20:00] VITALS: BP 126/68
[2020-01-30] VITALS: BP 167/84
[2020-01-30 04:00] VITALS: BP 136/76
[2020-01-30 07:04] LABS: BASOPHILS 0.3 % (0-2); EOSINOPHILS 2.2 % (0-7); HEMATOCRIT 31.7 % (42.0-54.0); HEMOGLOBIN 10.2 g/dL (13.5-17.5); IMMATURE GRANULOCYTES 0.9 % (0-5); LYMPHOCYTES 23.8 % (15-50); MCH 25.2 pg (26.0-34.0); MCHC 32.2 g/dL (31.0-37.0); MCV 78.5 fL (80.0-100.0); MEAN PLATELET VOLUME 10.1 fL (7.4-10.4); MONOCYTES 8.5 % (2-11); NEUTROPHILS 64.3 % (40-80); RBC 4.04 10x6/uL (4.20-6.10); WBC 13.5 10x3/uL (4.8-10.8)
[2020-01-30 07:05] LABS: PLATELET COUNT 184 10x3/uL (130-400)
[2020-01-30 07:08] LABS: ANION GAP 13.2 mmol/L (8-16); CALCIUM 8.2 mg/dL (8.5-10.1); CARBON DIOXIDE 21.5 mmol/L (21.0-32.0); CREATININE - SERUM 1.4 mg/dL (0.6-1.3); POTASSIUM - SERUM 3.7 mmol/L (3.5-5.1); VANCOMYCIN - RANDOM 11.3 ug/mL (10.0-20.0)
--- NOTE | 2020-01-30 07:55 | NUR ---
RECIEVED REPORT. PATIENT IS AWAKE AND ALERT AND DENIES ANY NEEDS AT THIS TIME.
[2020-01-30 10:00] VITALS: BP 147/80
--- NOTE | 2020-01-30 10:56 | NUR ---
HEPARIN DRIP DC ORDERED. APTT WAS 74.1
[2020-01-30 12:20] VITALS: BP 156/62
[2020-01-30 16:37] VITALS: BP 159/77
--- NOTE | 2020-01-30 19:33 | NUR ---
I HAVE ANSWERED LIGHT TWICE FOR NEEDS BED LOW AND LOCKED AND CALL LIGHT IN REACH. PT IS UP TO A CHAIR. SISTER IS IN THE ROOM SHES NOT WEARING PPE. I DID ENCOURAGE HER TO DO SO
[2020-01-30 20:00] VITALS: BP 146/85
[2020-01-31 00:30] VITALS: BP 131/74
[2020-01-31 04:00] VITALS: BP 140/68
[2020-01-31 05:01] LABS: BASOPHILS 0.2 % (0-2); EOSINOPHILS 2.5 % (0-7); HEMATOCRIT 31.3 % (42.0-54.0); LYMPHOCYTES 23.5 % (15-50); MCH 25.3 pg (26.0-34.0); MCHC 31.9 g/dL (31.0-37.0); MEAN PLATELET VOLUME 9.7 fL (7.4-10.4); MONOCYTES 9.3 % (2-11); NEUTROPHILS 63.5 % (40-80); PLATELET COUNT 209 10x3/uL (130-400); RBC 3.96 10x6/uL (4.20-6.10); WBC 12.1 10x3/uL (4.8-10.8)
--- NOTE | 2020-01-31 05:06 | NUR ---
I have reviewed this patient and I concur with the Shift Assessment completed by the Licensed Practical Nurse today this shift.
[2020-01-31 05:18] LABS: ANION GAP 12.6 mmol/L (8-16); CALCIUM 8.1 mg/dL (8.5-10.1); CARBON DIOXIDE 23.1 mmol/L (21.0-32.0); CREATININE - SERUM 1.3 mg/dL (0.6-1.3); POTASSIUM - SERUM 3.7 mmol/L (3.5-5.1); VANCOMYCIN - RANDOM 11.3 ug/mL (10.0-20.0)
--- NOTE | 2020-01-31 07:27 | NUR ---
PATIENT IS AWAKE AND ALERT. HE HAD A CRITICAL HIGH APTT. ORDERED A REDRAW.
[2020-01-31 08:34] VITALS: BP 179/82
--- NOTE | 2020-01-31 10:28 | MORECARE ---
CASE MANAGEMENT DISCHARGE SUMMARY PATIENT: KACI FRANCISCO UNIT: [id number] ADM DATE: 01/24/20 AGE: 69 : 52 SEX: M ROOM/BED: D.2134 AUTHOR: SHAY,DOC PHYSICIAN: REFERRING PHYSICIAN: KENYON FORREST MD DATE OF SERVICE: 01/31/20 Discharge Plan Patient Name: KACI FRANCISCO Facility: [facility]:[place] : 1950 Planned Disposition: Fpc Facility Anticipated Discharge Date: 01/31/20 Discharge Date: Expected LOS: 7 Initial Reviewer: [email or web address] Initial Review Date: 01/24/2020 Generated: 01/31/20 11:27 am Comments DCP- Discharge Planning Updated by [email or web address]: Mago Loaiza on 01/28/20 10:[address] CM called and spoke with Tanvi Francisco (son) [phone] regarding snf placement upon discharge. Tanvi stated that he would like for him to go to [facility] in [facility]. CM contacted [place] [phone] with [facility]. She stated to fax clinical to her [phone] and she would forward to [facility] and she would come to see patient. CM will fax records. CM will will follow and assist as needed with discharge planning / needs. DCP- Discharge Planning Updated by [email or web address]: Mago Loaiza on 01/25/20 2:[address] CM received call this am from [facility] patient's girlfriend. She stated that the patient has a walker, cane and wheelchair at home. He did not have any home health services prior to admission. She stated that patient has not been in the hospital in last 30days. CM will continue to follow and assist as needed with discharge planning / needs. DCP- Discharge Planning Updated by [email or web address]: Mago Loaiza on 01/24/20 5:[address] Patient Name: KACI FRANCISCO Admission Status: ER Accout number: [id number] Admission Date: 01-24-2020 : 1950 Admission Diagnosis: Attending: KENYON FORREST Current LOS: 1 Anticipated DC Date: Planned Disposition: Home Primary Insurance: MEDICARE A & B Discharge Planning Comments: CM met with patient's daughter Tory to complete initial dc planning assessment. CM educated patient on the CM role and verbal consent given by patient to complete assessment. CM verified patient's address, phone number, and emergency contact phone numbers. Patient lives at home with girlfriend Britany At discharge patient plans to return home. Uncertain of discharge needs at this time. Tory stated she didn't know if patient has medical equipment at home or home health. Tory stated that Britany is on her way here. CM gave Tory a card with CM information on it to have Britany to call. CM will continue to follow and will assist as needed with dc plans/needs. Tooth Cutter Pinion: Mago Loaiza DCPIA - Discharge Planning Initial Assessment Updated by [email or web address]: Mago Loaiza on 01/24/20 6:38 pm * Is the patient Alert and Oriented? No * How many steps to enter\exit or inside your home? 4-6 * PCP [facility] * Pharmacy [facility] * Preadmission Environment Home with Family * ADLs Independent * Other Equipment UNKNOWN * List name and contact numbers for known caregivers / representatives who currently or will assist patient after discharge: BRITANY FONTENOT - GIRLFRIEND- [phone] TANVI FRANCISCO - SON - [phone] TORY FRANCISCO - DAUGHTER- [phone] * Verbal permission to speak to the caregivers and representatives has been obtained from the patient. N/A * Community resources currently utilized None * Additional services required to return to the preadmission environment? No * Can the patient safely return to the preadmission environment? Yes * Has this patient been hospitalized within the prior 30 days at any hospital? No Coverage Notice Reviewer: [id number] - Mago Loaiza Notice Issued Date-Time: 01/28/2020 11:10 Notice Type: Patient Choice Letter Notice Delivered To: Family Member Relationship to Patient: Son Speeder Tender Name: TANVI FRANCISCO Delivery Method: PHONE - Phone Rhina Days: Prior Verbal Notification: Recipient Understood Notice: Yes Recipient Signature: Yes Med Rec Note Co-signed by Attending: Coverage Notice Comment: [facility]- [facility] Phillips DP export: 01/28/20 11:15 a Patient Name: KACI FRANCISCO Page [phone] at 1028 All edits/amendments must be made on the electronic document DICTATION DATE: 01/31/20 1027 COUNCILOR: PAUL 01/31/20 1027 RPT#: [id number] DC DATE: STATUS: ADM IN [facility] [address] [place] [address] END OF REPORT
--- NOTE | 2020-01-31 10:36 | MORECARE ---
CASE MANAGEMENT DISCHARGE SUMMARY PATIENT: KACI FRANCISCO UNIT: [id number] ADM DATE: 01/24/20 AGE: 69 : 52 SEX: M ROOM/BED: D.2134 AUTHOR: SHAY,DOC PHYSICIAN: REFERRING PHYSICIAN: KENYON FORREST MD DATE OF SERVICE: 01/31/20 Discharge Plan Patient Name: KACI FRANCISCO Facility: [facility]:[place] : 1950 Planned Disposition: Usp Facility Anticipated Discharge Date: 01/31/20 Discharge Date: Expected LOS: 7 Initial Reviewer: [email or web address] Initial Review Date: 01/24/2020 Generated: 01/31/20 11:35 am Comments DCP- Discharge Planning Updated by [email or web address]: Fermin Castillo on 01/31/20 9:[address] Patient Name: KACI FRANCISCO Encounter No: [id number] : 1950 Primary Insurance: MEDICARE A & B Anticipated DC Date: 01-31-2020 Planned Disposition: Usp Facility External Planned Provider: [facility], MEDICARE REHAB BED DCP follow-up note: FREDDY FAXED UPDATE TO [facility] AT [phone]. FREDDY WAITING ADMISSION DETERMINATION FROM [facility]. SOULEYMANE Roque DCP- Discharge Planning Updated by [email or web address]: Mago Loaiza on 01/28/20 10:[address] CM called and spoke with Tanvi Francisco (son) [phone] regarding [facility] placement upon discharge. Tanvi stated that he would like for him to go to [facility] in [facility]. FREDDY contacted [place] [phone] with [facility]. She stated to fax clinical to her [phone] and she would forward to [place] and she would come to see patient. CM will fax records. CM will will follow and assist as needed with discharge planning / needs. DCP- Discharge Planning Updated by [email or web address]: Mago Loaiza on 01/25/20 2:[address] CM received call this am from [place] patient's girlfriend. She stated that the patient has a walker, cane and wheelchair at home. He did not have any home health services prior to admission. She stated that patient has not been in the hospital in last 30days. CM will continue to follow and assist as needed with discharge planning / needs. DCP- Discharge Planning Updated by [id number]: Mago Loaiza on 01/24/20 5:[address] Patient Name: KACI FRANCISCO Admission Status: ER Accout number: [id number] Admission Date: 01-24-2020 : 1950 Admission Diagnosis: Attending: KENYON FORREST Current LOS: 1 Anticipated DC Date: Planned Disposition: Home Primary Insurance: MEDICARE A & B Discharge Planning Comments: CM met with patient's daughter Tory to complete initial dc planning assessment. CM educated patient on the CM role and verbal consent given by patient to complete assessment. CM verified patient's address, phone number, and emergency contact phone numbers. Patient lives at home with girlfriend Gracie At discharge patient plans to return home. Uncertain of discharge needs at this time. Tory stated she didn't know if patient has medical equipment at home or home health. Tory stated that Gracie is on her way here. CM gave Tory a card with CM information on it to have Gracie to call. CM will continue to follow and will assist as needed with dc plans/needs. Furniture Dipper: Mago Loaiza DCPIA - Discharge Planning Initial Assessment Updated by [email or web address]: Mago Loaiza on 01/24/20 6:38 pm * Is the patient Alert and Oriented? No * How many steps to enter\exit or inside your home? 4-6 * PCP [facility] * Pharmacy [facility] * Preadmission Environment Home with Family * ADLs Independent * Other Equipment UNKNOWN * List name and contact numbers for known caregivers / representatives who currently or will assist patient after discharge: GRACIE FONTENOT - GIRLFRIEND- [phone] TANVI FRANCISCO - SON - [phone] TORY FRANCISCO - DAUGHTER- [phone] * Verbal permission to speak to the caregivers and representatives has been obtained from the patient. N/A * Community resources currently utilized None * Additional services required to return to the preadmission environment? No * Can the patient safely return to the preadmission environment? Yes * Has this patient been hospitalized within the prior 30 days at any hospital? No External Providers External Provider: Muna Arrieta Contact Date: 01/31/2020 Service Request Date: Service Type: Resolution: Reviewer: Comments: Coverage Notice Reviewer: [email or web address] Matthew Loaiza Notice Issued Date-Time: 01/28/2020 11:10 Notice Type: Patient Choice Letter Notice Delivered To: Family Member Relationship to Patient: Son Labor Relations Worker Name: ATNVI FRANCISCO Delivery Method: PHONE - Phone Rhina Days: Prior Verbal Notification: Recipient Understood Notice: Yes Recipient Signature: Yes Med Rec Note Co-signed by Attending: Coverage Notice Comment: KENA BARRIOS Last DP export: 01/31/20 9:28 a Patient Name: KACI FRANCISCO Page 51088 at 1036 All edits/amendments must be made on the electronic document DICTATION DATE: 01/31/20 1035 AIRWAYS CONTROL SPECIALIST: PAUL 01/31/20 1035 RPT#: [id number] DC DATE: STATUS: ADM IN [facility] [address] [place] [address] END OF REPORT
[2020-01-31 11:00] VITALS: BP 160/78
--- NOTE | 2020-01-31 16:16 | MORECARE ---
CASE MANAGEMENT DISCHARGE SUMMARY PATIENT: KACI FRANCISCO UNIT: [id number] ADM DATE: 01/24/20 AGE: 69 : 54 SEX: M ROOM/BED: D.2134 AUTHOR: SHAY,DOC PHYSICIAN: REFERRING PHYSICIAN: KENYON FORREST MD DATE OF SERVICE: 01/31/20 Discharge Plan Patient Name: KACI FRANCISCO Facility: [facility]:[place] : 1950 Planned Disposition: Detention Facility Anticipated Discharge Date: 01/31/20 Discharge Date: Expected LOS: 7 Initial Reviewer: [id number] Initial Review Date: 01/24/2020 Generated: 01/31/20 5:16 pm Comments DCP- Discharge Planning Updated by [email or web address]: Maurice Ness on 01/31/20 3:[address] Patient Name: KACI FRANCISCO Encounter No: [id number] : 1950 Primary Insurance: MEDICARE A & B Anticipated DC Date: 01-31-2020 Planned Disposition: Detention Facility External Planned Provider: [facility], MEDICARE REHAB BED DCP follow-up note: CM FAXED UPDATE TO [facility] AT [phone]. CM WAITING ADMISSION DETERMINATION FROM [facility] FOR [facility]. Maurice Ness, CASE MANAGEMENT Appended by Maurice Ness on 01/31/2020 16:12 CDT: CM RECEIVED CALL FROM [facility], THEY HAVE QUESTIONS REGARDING PT FOR REHAB ADMIT CONSIDERATION: -WILL PT HAVE DIAGNOSIS OF DEMENTIA BASED ON RESULTS OF HEAD CT? - WHY WAS PT'S POTASSIUM SO HIGH? -WILL PATIENT NEED DIALYSIS IN FUTURE? -WILL DIALYSIS CATHETER BE MOVED? - WILL PT REQUIRE IV ANTIBIOTICS IN [facility] REHAB? - WILL CENTRAL LINE BE REMOVED? - WILL PATIENT HAVE FOLLOW UP APPOINTMENTS SCHEDULED FOR THE TIME PT IS IN REHAB AT [facility], IF ACCEPTED BY FACILITY? CM PROVIDED QUESTIONS TO ALFREDO GONSALES, FAXED UPDATED "5 DAY MAR" TO [facility] AT [phone]. CM CONTINUES TO WAIT ADMISSION DETERMINATION FROM [facility]. MAURICE NESS, CASE MANAGEMENT DCP- Discharge Planning Updated by [email or web address]: Mago Loaiza on 01/28/20 10:[address] CM called and spoke with Tanvi Francisco (son) [phone] regarding fdc placement upon discharge. Tanvi stated that he would like for him to go to [place] in [facility]. CM contacted Cynthia [phone] with [facility]. She stated to fax clinical to her [phone] and she would forward to [place] and she would come to see patient. CM will fax records. CM will will follow and assist as needed with discharge planning / needs. DCP- Discharge Planning Updated by [email or web address]: Mago Loaiza on 01/25/20 2:[address] CM received call this am from Gracie patient's girlfriend. She stated that the patient has a walker, cane and wheelchair at home. He did not have any home health services prior to admission. She stated that patient has not been in the hospital in last 30days. CM will continue to follow and assist as needed with discharge planning / needs. DCP- Discharge Planning Updated by [email or web address]: Mago Loaiza on 01/24/20 5:[address] Patient Name: KACI FRANCISCO Admission Status: ER Accout number: [id number] Admission Date: 01-24-2020 : 1950 Admission Diagnosis: Attending: KENYON FORREST Current LOS: 1 Anticipated DC Date: Planned Disposition: Home Primary Insurance: MEDICARE A & B Discharge Planning Comments: CM met with patient's daughter Tory to complete initial dc planning assessment. CM educated patient on the CM role and verbal consent given by patient to complete assessment. CM verified patient's address, phone number, and emergency contact phone numbers. Patient lives at home with girlfriend Gracie At discharge patient plans to return home. Uncertain of discharge needs at this time. Tory stated she didn't know if patient has medical equipment at home or home health. Tory stated that Gracie is on her way here. CM gave Tory a card with CM information on it to have Gracie to call. CM will continue to follow and will assist as needed with dc plans/needs. Mottler Machine Feeder: Mago Loaiza DCPIA - Discharge Planning Initial Assessment Updated by [email or web address]: Mago Loaiza on 01/24/20 6:38 pm * Is the patient Alert and Oriented? No * How many steps to enter\\exit or inside your home? 4-6 * PCP [facility] * Pharmacy [facility] * Preadmission Environment Home with Family * ADLs Independent * Other Equipment UNKNOWN * List name and contact numbers for known caregivers / representatives who currently or will assist patient after discharge: GRACIE FONTENOT - GIRLFRIEND- [phone] TANVI FRANCISCO - SON - [phone] TORY FRANCISCO - DAUGHTER- [phone] * Verbal permission to speak to the caregivers and representatives has been obtained from the patient. N/A * Community resources currently utilized None * Additional services required to return to the preadmission environment? No * Can the patient safely return to the preadmission environment? Yes * Has this patient been hospitalized within the prior 30 days at any hospital? No Coverage Notice Reviewer: [id number] Matthew Loaiza Notice Issued Date-Time: 01/28/2020 11:10 Notice Type: Patient Choice Letter Notice Delivered To: Family Member Relationship to Patient: Son Supervisor Scenic Arts Name: TANVI FRANCISCO Delivery Method: PHONE - Phone Rhina Days: Prior Verbal Notification: Recipient Understood Notice: Yes Recipient Signature: Yes Med Rec Note Co-signed by Attending: Coverage Notice Comment: KENA Phillips DP export: 01/31/20 9:36 a Patient Name: KACI FRANCISCO Page [id number] at 1616 All edits/amendments must be made on the electronic document DICTATION DATE: 01/31/20 1616 VP HUMAN RESOURCES: PAUL 01/31/20 1616 RPT#: [id number] DC DATE: STATUS: ADM IN [facility] [address] [place] [address] END OF REPORT
--- NOTE | 2020-01-31 19:20 | NUR ---
CONT TO OBSERVE ISOLATION FOR THE FLU PT DENIES OTHER NEEDS
[2020-01-31 20:00] VITALS: BP 174/87
[2020-02-01] VITALS: BP 160/77
[2020-02-01 04:00] VITALS: BP 165/62
[2020-02-01 05:26] LABS: BASOPHILS 0.1 % (0-2); EOSINOPHILS 2.8 % (0-7); HEMATOCRIT 32.6 % (42.0-54.0); HEMOGLOBIN 10.1 g/dL (13.5-17.5); IMMATURE GRANULOCYTES 0.8 % (0-5); LYMPHOCYTES 24.3 % (15-50); MCH 25.1 pg (26.0-34.0); MCV 80.9 fL (80.0-100.0); MEAN PLATELET VOLUME 9.5 fL (7.4-10.4); MONOCYTES 9.9 % (2-11); NEUTROPHILS 62.1 % (40-80); PLATELET COUNT 248 10x3/uL (130-400); RBC 4.03 10x6/uL (4.20-6.10); RDW 16.4 % (11.5-14.5); WBC 10.6 10x3/uL (4.8-10.8)
--- NOTE | 2020-02-01 05:35 | NUR ---
I have reviewed this patient and I concur with the Shift Assessment completed by the Licensed Practical Nurse today this shift.
[2020-02-01 05:42] LABS: ANION GAP 11.2 mmol/L (8-16); CARBON DIOXIDE 23.3 mmol/L (21.0-32.0); CREATININE - SERUM 1.3 mg/dL (0.6-1.3); POTASSIUM - SERUM 3.5 mmol/L (3.5-5.1)
[2020-02-01 08:29] VITALS: BP 170/80
--- NOTE | 2020-02-01 09:56 | MORECARE ---
CASE MANAGEMENT DISCHARGE SUMMARY PATIENT: KACI FRANCISCO UNIT: [id number] ADM DATE: 01/24/20 AGE: 69 : 54 SEX: M ROOM/BED: D.7964 AUTHOR: SHAY,DOC PHYSICIAN: REFERRING PHYSICIAN: KENYON FORREST MD DATE OF SERVICE: 02/01/20 Discharge Plan Patient Name: KACI FRANCISCO Facility: [facility]:[place] : 1950 Planned Disposition: Longterm Facility Anticipated Discharge Date: 01/31/20 Discharge Date: Expected LOS: 7 Initial Reviewer: [email or web address] Initial Review Date: 01/24/2020 Generated: 02/01/20 10:56 am Comments DCP- Discharge Planning Updated by [email or web address]: Maurice Ness on 02/01/20 8:[address] Patient Name: KACI FRANCISCO Encounter No: [id number] : 1950 Primary Insurance: MEDICARE A & B Anticipated DC Date: 01-31-2020 Planned Disposition: Longterm Facility External Planned Provider: [facility], MEDICARE REHAB BED DCP follow-up note: CM FAXED UPDATE TO [facility] AT [phone]. CM RECEIVED CALL FROM [facility], THEY HAVE QUESTIONS REGARDING PT FOR REHAB ADMIT CONSIDERATION: -WILL PT HAVE DIAGNOSIS OF DEMENTIA BASED ON RESULTS OF HEAD CT? - WHY WAS PT'S POTASSIUM SO HIGH? -WILL PATIENT NEED DIALYSIS IN FUTURE? -WILL DIALYSIS CATHETER BE MOVED? - WILL CENTRAL LINE BE REMOVED? - WILL PATIENT HAVE FOLLOW UP APPOINTMENTS SCHEDULED FOR THE TIME PT IS IN REHAB AT [facility], IF ACCEPTED BY FACILITY? CM WAS QUESTIONED REGARDING PT HAVING BEEN TESTED OR WILL PT BE TESTED FOR COVID19/ CM INFORMED [facility] THAT PT HAS NOT BEEN TESTED FOR COVID19 AND HAS NO SYMPTOMS. PT HAS BEEN TREATED FOR THE FLU WITH NO FURTHER SYPMPTOMS. CM PROVIDED QUESTIONS TO ALFREDO GARCES AND WILL NOTIFY FANNIE WHEN QUESTIONS HAVE BEEN ANSWERED. CM CONTINUES TO WAIT ADMISSION DETERMINATION FROM [facility]. MAURICE NESS, CASE MANAGEMENT DCP- Discharge Planning Updated by [id number]: Maurice Ness on 01/31/20 3:[address] Patient Name: KACI FRANCISCO Encounter No: [id number] : 1950 Primary Insurance: MEDICARE A & B Anticipated DC Date: 01-31-2020 Planned Disposition: Longterm Facility External Planned Provider: [facility] MEDICARE REHAB BED DCP follow-up note: FREDDY FAXED UPDATE TO [facility] AT [phone]. CM WAITING ADMISSION DETERMINATION FROM [facility] REH[facility]. Maurice Ness, CASE MANAGEMENT Appended by Maurice Ness on 01/31/2020 16:12 CDT: CM RECEIVED CALL FROM [facility], THEY HAVE QUESTIONS REGARDING PT FOR REHAB ADMIT CONSIDERATION: -WILL PT HAVE DIAGNOSIS OF DEMENTIA BASED ON RESULTS OF HEAD CT? - WHY WAS PT'S POTASSIUM SO HIGH? -WILL PATIENT NEED DIALYSIS IN FUTURE? -WILL DIALYSIS CATHETER BE MOVED? - WILL PT REQUIRE IV ANTIBIOTICS IN [facility] REHAB? - WILL CENTRAL LINE BE REMOVED? - WILL PATIENT HAVE FOLLOW UP APPOINTMENTS SCHEDULED FOR THE TIME PT IS IN REHAB AT [facility], IF ACCEPTED BY FACILITY? FREDDY PROVIDED QUESTIONS TO ALFREDO GONSALES, FAXED UPDATED "5 DAY MAR" TO [facility] AT [phone]. CM CONTINUES TO WAIT ADMISSION DETERMINATION FROM [facility]. MAURICE NESS, CASE MANAGEMENT DCP- Discharge Planning Updated by [id number]: Mago Loaiza on 01/28/20 10:[address] CM called and spoke with Tanvi Francisco (son) [phone] regarding group home placement upon discharge. Tanvi stated that he would like for him to go to [place] in [place] signed. FREDDY contacted [place] [phone] with [facility]. She stated to fax clinical to her [phone] and she would forward to [place] and she would come to see patient. CM will fax records. CM will will follow and assist as needed with discharge planning / needs. DCP- Discharge Planning Updated by [id number]: Mago Loaiza on 01/25/20 2:[address] CM received call this am from Gracie patient's girlfriend. She stated that the patient has a walker, cane and wheelchair at home. He did not have any home health services prior to admission. She stated that patient has not been in the hospital in last 30days. CM will continue to follow and assist as needed with discharge planning / needs. DCP- Discharge Planning Updated by [email or web address]: Mago Loaiza on 01/24/20 5:[address] Patient Name: KACI FRANCISCO Admission Status: ER Accout number: [id number] Admission Date: 01-24-2020 : 1950 Admission Diagnosis: Attending: KENYON FORREST Current LOS: 1 Anticipated DC Date: Planned Disposition: Home Primary Insurance: MEDICARE A & B Discharge Planning Comments: CM met with patient's daughter Tory to complete initial dc planning assessment. CM educated patient on the CM role and verbal consent given by patient to complete assessment. CM verified patient's address, phone number, and emergency contact phone numbers. Patient lives at home with girlfriend Gracie At discharge patient plans to return home. Uncertain of discharge needs at this time. Tory stated she didn't know if patient has medical equipment at home or home health. Tory stated that Gracie is on her way here. CM gave Tory a card with CM information on it to have Gracie to call. CM will continue to follow and will assist as needed with dc plans/needs. Statement Processor: Mago Loaiza DCPIA - Discharge Planning Initial Assessment Updated by [email or web address]: Mago Loaiza on 01/24/20 6:38 pm * Is the patient Alert and Oriented? No * How many steps to enter\\exit or inside your home? 4-6 * PCP [facility] * Pharmacy [facility] * Preadmission Environment Home with Family * ADLs Independent * Other Equipment UNKNOWN * List name and contact numbers for known caregivers / representatives who currently or will assist patient after discharge: GRACIE FONTENOT - GIRLFRIEND- [phone] TANVI FRANCISCO - SON - [phone] TORY FRANCISCO - DAUGHTER- [phone] * Verbal permission to speak to the caregivers and representatives has been obtained from the patient. N/A * Community resources currently utilized None * Additional services required to return to the preadmission environment? No * Can the patient safely return to the preadmission environment? Yes * Has this patient been hospitalized within the prior 30 days at any hospital? No Coverage Notice Reviewer: [id number] - Mago Loaiza Notice Issued Date-Time: 01/28/2020 11:10 Notice Type: Patient Choice Letter Notice Delivered To: Family Member Relationship to Patient: Son Mobile Device Engineer Name: TANVI FRANCISCO Delivery Method: PHONE - Phone Rhina Days: Prior Verbal Notification: Recipient Understood Notice: Yes Recipient Signature: Yes Med Rec Note Co-signed by Attending: Coverage Notice Comment: KENA Phillips DP export: 01/31/20 3:16 p Patient Name: KACI FRANCISCO Page [id number] at 0956 All edits/amendments must be made on the electronic document DICTATION DATE: 02/01/20955 STRIPPING MACHINE OPERATOR: PAUL 02/01/20955 RPT#: [id number] DC DATE: STATUS: ADM IN [facility] [address] [place] [address] END OF REPORT
[2020-02-01 12:47] VITALS: BP 172/71
--- NOTE | 2020-02-01 12:47 | NUR ---
Nutrition Follow-up: Eating well. Noted diet consistencies upgraded per ST. Diet: Diabetic, Mech Soft with [place] Thick Liquids PO intake: 80-100% yesterday No new wt; last wt: 155# (01/23) Last BM: 01/26 Labs noted: Glu 149, Ca 8.0 Meds noted: NS @ 50, Humulin, Protonix -Continue current diet as tolerated with consistencies per ST. -MD may consider GI motility agent. -Need new wt. -RD following.
[2020-02-01] MEDS ORDERED: ELIQUIS5 MG PO (13:17)
[2020-02-01] MEDS ORDERED: AMIODARONE HCL200 MG PO (13:17)
--- NOTE | 2020-02-01 14:12 | MORECARE ---
CASE MANAGEMENT DISCHARGE SUMMARY PATIENT: KACI FRANCISCO UNIT: [id number] ADM DATE: 01/24/20 AGE: 69 : 54 SEX: M ROOM/BED: D.9934 AUTHOR: SHAY,DOC PHYSICIAN: REFERRING PHYSICIAN: KENYON FORREST MD DATE OF SERVICE: 02/01/20 Discharge Plan Patient Name: KACI FRANCISCO Facility: [facility]:[place] : 1950 Planned Disposition: Senior Living Facility Anticipated Discharge Date: 01/31/20 Discharge Date: Expected LOS: 7 Initial Reviewer: [id number] Initial Review Date: 01/24/2020 Generated: 02/01/20 3:12 pm Comments DCP- Discharge Planning Updated by [email or web address]: Maurice Ness on 02/01/20 8:[address] Patient Name: KACI FRANCISCO Encounter No: [id number] : 1950 Primary Insurance: MEDICARE A & B Anticipated DC Date: 01-31-2020 Planned Disposition: Senior Living Facility External Planned Provider: [facility], MEDICARE REHAB BED DCP follow-up note: CM FAXED UPDATE TO [facility] AT [phone]. CM RECEIVED CALL FROM [facility], THEY HAVE QUESTIONS REGARDING PT FOR REHAB ADMIT CONSIDERATION: -WILL PT HAVE DIAGNOSIS OF DEMENTIA BASED ON RESULTS OF HEAD CT? - WHY WAS PT'S POTASSIUM SO HIGH? -WILL PATIENT NEED DIALYSIS IN FUTURE? -WILL DIALYSIS CATHETER BE MOVED? - WILL CENTRAL LINE BE REMOVED? - WILL PATIENT HAVE FOLLOW UP APPOINTMENTS SCHEDULED FOR THE TIME PT IS IN REHAB AT [place], IF ACCEPTED BY FACILITY? CM WAS QUESTIONED REGARDING PT HAVING BEEN TESTED OR WILL PT BE TESTED FOR COVID19/ CM INFORMED [facility] THAT PT HAS NOT BEEN TESTED FOR COVID19 AND HAS NO SYMPTOMS. PT HAS BEEN TREATED FOR THE FLU WITH NO FURTHER SYPMPTOMS. CM PROVIDED QUESTIONS TO ALFREDO GARCES AND WILL NOTIFY FANNIE WHEN QUESTIONS HAVE BEEN ANSWERED. CM CONTINUES TO WAIT ADMISSION DETERMINATION FROM [facility]. MAURICE NESS, CASE MANAGEMENT DCP- Discharge Planning Updated by [id number]: Maurice Ness on 01/31/20 3:[address] Patient Name: KACI FRANCISCO Encounter No: [id number] : 1950 Primary Insurance: MEDICARE A & B Anticipated DC Date: 01-31-2020 Planned Disposition: Senior Living Facility External Planned Provider: [facility] MEDICARE REHAB BED DCP follow-up note: FREDDY FAXED UPDATE TO [facility] AT [phone]. CM WAITING ADMISSION DETERMINATION FROM [facility] RE[facility]. Maurice Ness, CASE MANAGEMENT Appended by Maurice Ness on 01/31/2020 16:12 CDT: CM RECEIVED CALL FROM [facility], THEY HAVE QUESTIONS REGARDING PT FOR REHAB ADMIT CONSIDERATION: -WILL PT HAVE DIAGNOSIS OF DEMENTIA BASED ON RESULTS OF HEAD CT? - WHY WAS PT'S POTASSIUM SO HIGH? -WILL PATIENT NEED DIALYSIS IN FUTURE? -WILL DIALYSIS CATHETER BE MOVED? - WILL PT REQUIRE IV ANTIBIOTICS IN [facility] RE[facility]AB? - WILL CENTRAL LINE BE REMOVED? - WILL PATIENT HAVE FOLLOW UP APPOINTMENTS SCHEDULED FOR THE TIME PT IS IN REHAB AT [place], IF ACCEPTED BY FACILITY? FREDDY PROVIDED QUESTIONS TO ALFREDO GONSALES, FAXED UPDATED "5 DAY MAR" TO [place] [facility] AT [phone]. CM CONTINUES TO WAIT ADMISSION DETERMINATION FROM [facility]. MAURICE NESS, CASE MANAGEMENT DCP- Discharge Planning Updated by [id number]: Mago Loaiza on 01/28/20 10:[address] CM called and spoke with Tanvi Francicso (son) [phone] regarding jail placement upon discharge. Tanvi stated that he would like for him to go to [place] in [place] signed. FREDDY contacted [place] [phone] with [facility]. She stated to fax clinical to her [phone] and she would forward to [place] and she would come to see patient. CM will fax records. CM will will follow and assist as needed with discharge planning / needs. DCP- Discharge Planning Updated by [id number]: Mago Loaiza on 01/25/20 2:[address] CM received call this am from Gracie patient's girlfriend. She stated that the patient has a walker, cane and wheelchair at home. He did not have any home health services prior to admission. She stated that patient has not been in the hospital in last 30days. CM will continue to follow and assist as needed with discharge planning / needs. DCP- Discharge Planning Updated by [email or web address]: Mago Loaiza on 01/24/20 5:[address] Patient Name: KACI FRANCISCO Admission Status: ER Accout number: [id number] Admission Date: 01-24-2020 : 1950 Admission Diagnosis: Attending: KENYON FORREST Current LOS: 1 Anticipated DC Date: Planned Disposition: Home Primary Insurance: MEDICARE A & B Discharge Planning Comments: CM met with patient's daughter Tory to complete initial dc planning assessment. CM educated patient on the CM role and verbal consent given by patient to complete assessment. CM verified patient's address, phone number, and emergency contact phone numbers. Patient lives at home with girlfriend Gracie At discharge patient plans to return home. Uncertain of discharge needs at this time. Tory stated she didn't know if patient has medical equipment at home or home health. Tory stated that Gracie is on her way here. CM gave Tory a card with CM information on it to have Gracie to call. CM will continue to follow and will assist as needed with dc plans/needs. Tree Inspector: Mago Loaiza DCPIA - Discharge Planning Initial Assessment Updated by [email or web address]: Mago Loaiza on 01/24/20 6:38 pm * Is the patient Alert and Oriented? No * How many steps to enter\\exit or inside your home? 4-6 * PCP [facility] * Pharmacy [facility] * Preadmission Environment Home with Family * ADLs Independent * Other Equipment UNKNOWN * List name and contact numbers for known caregivers / representatives who currently or will assist patient after discharge: GRACIE FONTENOT - GIRLFRIEND- [phone] TANVI FRANCISCO - SON - [phone] TORY FRANCISCO - DAUGHTER- [phone] * Verbal permission to speak to the caregivers and representatives has been obtained from the patient. N/A * Community resources currently utilized None * Additional services required to return to the preadmission environment? No * Can the patient safely return to the preadmission environment? Yes * Has this patient been hospitalized within the prior 30 days at any hospital? No Coverage Notice Reviewer: [id number] Matthew Loaiza Notice Issued Date-Time: 01/28/2020 11:10 Notice Type: Patient Choice Letter Notice Delivered To: Family Member Relationship to Patient: Son Waiter/Waitress Room Service Name: TANVI FRANCISCO Delivery Method: PHONE - Phone Rhina Days: Prior Verbal Notification: Recipient Understood Notice: Yes Recipient Signature: Yes Med Rec Note Co-signed by Attending: Coverage Notice Comment: KENA BARRIOS Reviewer: [id number] - Maurice Ness Notice Issued Date-Time: 02/01/2020 13:20 Notice Type: IM Discharge Notice Notice Delivered To: Patient Relationship to Patient: Waiter/Waitress Room Service Name: Delivery Method: HAND - Hand Delivered Rhina Days: Prior Verbal Notification: Recipient Understood Notice: Yes Recipient Signature: Yes Med Rec Note Co-signed by Attending: Coverage Notice Comment: Last DP export: 02/01/20 8:56 a Patient Name: KACI FRANCISCO Page 59088 at 1412 All edits/amendments must be made on the electronic document DICTATION DATE: 02/01/20 1412 PERSONAL LINES INSURANCE ADVISOR: PAUL 02/01/20 1412 RPT#: [id number] DC DATE: STATUS: ADM IN [facility] [address] [place] [address] END OF REPORT
--- NOTE | 2020-02-01 14:20 | MORECARE ---
CASE MANAGEMENT DISCHARGE SUMMARY PATIENT: KACI FRANCISCO UNIT: [id number] ADM DATE: 01/24/20 AGE: 69 : 54 SEX: M ROOM/BED: D.2134 AUTHOR: SHAY,DOC PHYSICIAN: REFERRING PHYSICIAN: KENYON FORREST MD DATE OF SERVICE: 02/01/20 Discharge Plan Patient Name: KACI FRANCISCO Facility: [facility]:[place] : 1950 Planned Disposition: [facility] Facility Anticipated Discharge Date: 01/31/20 Discharge Date: Expected LOS: 7 Initial Reviewer: [id number] Initial Review Date: 01/24/2020 Generated: 02/01/20 3:20 pm Comments DCP- Discharge Planning Updated by [id number]: Maurice Ness on 02/01/20 1:[address] Patient Name: KACI FRANCISCO Encounter No: [id number] : 1950 Primary Insurance: MEDICARE A & B Anticipated DC Date: 01-31-2020 Planned Disposition: [facility] Facility External Planned Provider: [facility] [place], MEDICARE REHAB BED DCP follow-up note: CM SPOKE TO ALFREDO GARY AND NOTIFIED CYNTHIA OF [facility] THE ANSWERS TO ALL QUESTIONS PRESENTED BY NURSING FACILITY. CYNTHIA NOTIFIED CM THAT [facility] WILL ACCEPT TODAY. CM NOTIFIED ALFREDO GARY. CM NOTIFIED PT IN ROOM. PT IN AGREEMENT WITH DISCHARGE TODAY TO [facility]. IMPORTANT MESSAGE FROM MEDICARE PROVIDED AND EXPLAINED. CM FAXED DISCHARGE INFORMATION TO [facility] VIA [facility]IA AT [phone]. NURSE REPORT TO BE CALLED TO [facility] AT [phone]. PT WILL TRANSPORT VIA AMBULANCE TO [facility] AT [address] [place] [address], [place] [address]. Maurice Ness, CASE BRYANNA DCP- Discharge Planning Updated by [id number]: Maurice Ness on 02/01/20 8:[address] Patient Name: KACI FRANCISCO Encounter No: [id number] : 1950 Primary Insurance: MEDICARE A & B Anticipated DC Date: 01-31-2020 Planned Disposition: [facility] Facility External Planned Provider: [facility], MEDICARE REHAB BED DCP follow-up note: CM FAXED UPDATE TO [facility] AT [phone]. CM RECEIVED CALL FROM [facility], THEY HAVE QUESTIONS REGARDING PT FOR REHAB ADMIT CONSIDERATION: -WILL PT HAVE DIAGNOSIS OF DEMENTIA BASED ON RESULTS OF HEAD CT? - WHY WAS PT'S POTASSIUM SO HIGH? -WILL PATIENT NEED DIALYSIS IN FUTURE? -WILL DIALYSIS CATHETER BE MOVED? - WILL CENTRAL LINE BE REMOVED? - WILL PATIENT HAVE FOLLOW UP APPOINTMENTS SCHEDULED FOR THE TIME PT IS IN REHAB AT [facility], IF ACCEPTED BY FACILITY? CM WAS QUESTIONED REGARDING PT HAVING BEEN TESTED OR WILL PT BE TESTED FOR COVID19/ CM INFORMED [facility] THAT PT HAS NOT BEEN TESTED FOR COVID19 AND HAS NO SYMPTOMS. PT HAS BEEN TREATED FOR THE FLU WITH NO FURTHER SYPMPTOMS. CM PROVIDED QUESTIONS TO ALFREDO GARCES AND WILL NOTIFY [facility] WHEN QUESTIONS HAVE BEEN ANSWERED. CM CONTINUES TO WAIT ADMISSION DETERMINATION FROM [facility]. MAURICE NESS CASE MANAGEMENT DCP- Discharge Planning Updated by [id number]: Maurice Ness on 01/31/20 3:[address] Patient Name: KACI FRANCISCO Encounter No: [id number] : 1950 Primary Insurance: MEDICARE A & B Anticipated DC Date: 01-31-2020 Planned Disposition: [facility] Facility External Planned Provider: [facility] MEDICARE REHAB BED DCP follow-up note: CM FAXED UPDATE TO [facility] AT [phone]. CM WAITING ADMISSION DETERMINATION FROM [facility] FOR [facility] SERVICES. Maurice Ness, CASE MANAGEMENT Appended by Maurice Ness on 01/31/2020 16:12 CDT: CM RECEIVED CALL FROM [facility], THEY HAVE QUESTIONS REGARDING PT FOR REHAB ADMIT CONSIDERATION: -WILL PT HAVE DIAGNOSIS OF DEMENTIA BASED ON RESULTS OF HEAD CT? - WHY WAS PT'S POTASSIUM SO HIGH? -WILL PATIENT NEED DIALYSIS IN FUTURE? -WILL DIALYSIS CATHETER BE MOVED? - WILL PT REQUIRE IV ANTIBIOTICS IN [facility] RE[facility]? - WILL CENTRAL LINE BE REMOVED? - WILL PATIENT HAVE FOLLOW UP APPOINTMENTS SCHEDULED FOR THE TIME PT IS IN REHAB AT [facility], IF ACCEPTED BY FACILITY? FREDDY PROVIDED QUESTIONS TO ALFREDO GONSALES, FAXED UPDATED "5 DAY JAN" TO [facility]IA [facility] AT [phone]. CM CONTINUES TO WAIT ADMISSION DETERMINATION FROM [facility]. MAURICE NESS, CASE MANAGEMENT DCP- Discharge Planning Updated by [id number]: Mago Loaiza on 01/28/20 10:[address] CM called and spoke with Tanvi Francisco (son) [phone] regarding assisted placement upon discharge. Tanvi stated that he would like for him to go to [facility] [place] [facility]. CM contacted Cynthia [phone] with [facility]. She stated to fax clinical to her [phone] and she would forward to [facility] and she would come to see patient. CM will fax records. CM will will follow and assist as needed with discharge planning / needs. DCP- Discharge Planning Updated by [email or web address]: Mago Josse on 01/25/20 2:[address] CM received call this am from Gracie patient's girlfriend. She stated that the patient has a walker, cane and wheelchair at home. He did not have any home health services prior to admission. She stated that patient has not been in the hospital in last 30days. CM will continue to follow and assist as needed with discharge planning / needs. DCP- Discharge Planning Updated by [id number]: Mago Loaiza on 01/24/20 5:[address] Patient Name: KACI FRANCISCO Admission Status: ER Accout number: [id number] Admission Date: 01-24-2020 : 1950 Admission Diagnosis: Attending: KENYON FORREST Current LOS: 1 Anticipated DC Date: Planned Disposition: Home Primary Insurance: MEDICARE A & B Discharge Planning Comments: CM met with patient's daughter Tory to complete initial dc planning assessment. CM educated patient on the CM role and verbal consent given by patient to complete assessment. CM verified patient's address, phone number, and emergency contact phone numbers. Patient lives at home with girlfriend Gracie At discharge patient plans to return home. Uncertain of discharge needs at this time. Tory stated she didn't know if patient has medical equipment at home or home health. Tory stated that Gracie is on her way here. CM gave Tory a card with CM information on it to have Gracie to call. CM will continue to follow and will assist as needed with dc plans/needs. Gas Load Dispatcher: Mago Loaiza DCPIA - Discharge Planning Initial Assessment Updated by [id number]: Mago Loaiza on 01/24/20 6:38 pm * Is the patient Alert and Oriented? No * How many steps to enter\\exit or inside your home? 4-6 * PCP [facility] * Pharmacy [facility] * Preadmission Environment Home with Family * ADLs Independent * Other Equipment UNKNOWN * List name and contact numbers for known caregivers / representatives who currently or will assist patient after discharge: GRACIE FONTENOT - GIRLFRIEND- [phone] TANVI FRANCISCO - SON - [phone] TORY Castro DAUGHTER- [phone] * Verbal permission to speak to the caregivers and representatives has been obtained from the patient. N/A * Community resources currently utilized None * Additional services required to return to the preadmission environment? No * Can the patient safely return to the preadmission environment? Yes * Has this patient been hospitalized within the prior 30 days at any hospital? No Coverage Notice Reviewer: [id number] - Mago Loaiza Notice Issued Date-Time: 01/28/2020 11:10 Notice Type: Patient Choice Letter Notice Delivered To: Family Member Relationship to Patient: Son Food Mobile Driver Name: TANVI FRANCISCO Delivery Method: PHONE - Phone Rhina Days: Prior Verbal Notification: Recipient Understood Notice: Yes Recipient Signature: Yes Med Rec Note Co-signed by Attending: Coverage Notice Comment: KENA BARRIOS Reviewer: [id number] - Maurice Ness Notice Issued Date-Time: 02/01/2020 13:20 Notice Type: IM Discharge Notice Notice Delivered To: Patient Relationship to Patient: Food Mobile Driver Name: Delivery Method: HAND - Hand Delivered Rhina Days: Prior Verbal Notification: Recipient Understood Notice: Yes Recipient Signature: Yes Med Rec Note Co-signed by Attending: Coverage Notice Comment: Last DP export: 02/01/20 1:13 p Patient Name: KACI FRANCISCO Page [id number] at 1420 All edits/amendments must be made on the electronic document DICTATION DATE: 02/01/20 1420 PRODUCTION INTERNSHIP: PAUL 02/01/20 1420 RPT#: [id number] CT DATE: STATUS: ADM IN [facility] [address] [place] [address] END OF REPORT
--- NOTE | 2020-02-01 14:30 | NUR ---
REDDY MADRID DC'D WOO VARGAS
--- NOTE | 2020-02-01 14:31 | NUR ---
REDDY MADRID DC'D RIGHT IJ TRIALYSIS CATH.
--- NOTE | 2020-02-01 14:37 | MORECARE ---
CASE MANAGEMENT DISCHARGE SUMMARY PATIENT: KACI FRANCISCO UNIT: [id number] ADM DATE: 01/24/20 AGE: 69 : 54 SEX: M ROOM/BED: D.2134 AUTHOR: SHAY,DOC PHYSICIAN: REFERRING PHYSICIAN: KENYON FORREST MD DATE OF SERVICE: 02/01/20 Discharge Plan Patient Name: KACI FRANCISCO Facility: [facility]:[place] : 1950 Planned Disposition: Long-Term Facility Anticipated Discharge Date: 01/31/20 Discharge Date: Expected LOS: 7 Initial Reviewer: [id number] Initial Review Date: 01/24/2020 Generated: 02/01/20 3:37 pm Comments DCP- Discharge Planning Updated by [id number]: Maurice Ness on 02/01/20 1:[address] Patient Name: KACI FRANCISCO Encounter No: [id number] : 1950 Primary Insurance: MEDICARE A & B Anticipated DC Date: 01-31-2020 Planned Disposition: Long-Term Facility External Planned Provider: [facility] [place], MEDICARE REHAB BED DCP follow-up note: CM SPOKE TO ALFREDO GARY AND NOTIFIED CYNTHIA OF [facility] THE ANSWERS TO ALL QUESTIONS PRESENTED BY NURSING FACILITY. CYNTHIA NOTIFIED CM THAT [facility] WILL ACCEPT TODAY. CM NOTIFIED ALFREDO GARY. CM NOTIFIED PT IN ROOM. PT IN AGREEMENT WITH DISCHARGE TODAY TO [facility]. IMPORTANT MESSAGE FROM MEDICARE PROVIDED AND EXPLAINED. CM FAXED DISCHARGE INFORMATION TO [facility]IA [facility] AT [phone]. NURSE REPORT TO BE CALLED TO [facility] AT [phone]. PT WILL TRANSPORT VIA AMBULANCE TO [facility] AT [address] [place] [address], [place] [address]. Maurice Ness, CASE BRYANNA DCP- Discharge Planning Updated by [id number]: Maurice Nses on 02/01/20 8:[address] Patient Name: KACI FRANCISCO Encounter No: [id number] : 1950 Primary Insurance: MEDICARE A & B Anticipated DC Date: 01-31-2020 Planned Disposition: Long-Term Facility External Planned Provider: [facility], MEDICARE REHAB BED DCP follow-up note: CM FAXED UPDATE TO [facility] AT [phone]. CM RECEIVED CALL FROM [facility], THEY HAVE QUESTIONS REGARDING PT FOR REHAB ADMIT CONSIDERATION: -WILL PT HAVE DIAGNOSIS OF DEMENTIA BASED ON RESULTS OF HEAD CT? - WHY WAS PT'S POTASSIUM SO HIGH? -WILL PATIENT NEED DIALYSIS IN FUTURE? -WILL DIALYSIS CATHETER BE MOVED? - WILL CENTRAL LINE BE REMOVED? - WILL PATIENT HAVE FOLLOW UP APPOINTMENTS SCHEDULED FOR THE TIME PT IS IN REHAB AT [facility], IF ACCEPTED BY FACILITY? CM WAS QUESTIONED REGARDING PT HAVING BEEN TESTED OR WILL PT BE TESTED FOR COVID19/ CM INFORMED [facility] THAT PT HAS NOT BEEN TESTED FOR COVID19 AND HAS NO SYMPTOMS. PT HAS BEEN TREATED FOR THE FLU WITH NO FURTHER SYPMPTOMS. CM PROVIDED QUESTIONS TO ALFREDO GARCES AND WILL NOTIFY [facility] WHEN QUESTIONS HAVE BEEN ANSWERED. CM CONTINUES TO WAIT ADMISSION DETERMINATION FROM [facility]. MAURICE NESS CASE MANAGEMENT DCP- Discharge Planning Updated by [id number]: Maurice Ness on 01/31/20 3:[address] Patient Name: KACI FRANCISCO Encounter No: [id number] : 1950 Primary Insurance: MEDICARE A & B Anticipated DC Date: 01-31-2020 Planned Disposition: Long-Term Facility External Planned Provider: [facility] MEDICARE REHAB BED DCP follow-up note: CM FAXED UPDATE TO [facility] AT [phone]. CM WAITING ADMISSION DETERMINATION FROM [facility]. Maurice Ness, CASE MANAGEMENT Appended by Maurice Ness on 01/31/2020 16:12 CDT: CM RECEIVED CALL FROM [facility], THEY HAVE QUESTIONS REGARDING PT FOR REHAB ADMIT CONSIDERATION: -WILL PT HAVE DIAGNOSIS OF DEMENTIA BASED ON RESULTS OF HEAD CT? - WHY WAS PT'S POTASSIUM SO HIGH? -WILL PATIENT NEED DIALYSIS IN FUTURE? -WILL DIALYSIS CATHETER BE MOVED? - WILL PT REQUIRE IV ANTIBIOTICS IN [facility] REHAB? - WILL CENTRAL LINE BE REMOVED? - WILL PATIENT HAVE FOLLOW UP APPOINTMENTS SCHEDULED FOR THE TIME PT IS IN REHAB AT [facility], IF ACCEPTED BY FACILITY? FREDDY PROVIDED QUESTIONS TO ALFREDO GONSALES, FAXED UPDATED "5 DAY JAN" TO [facility] AT [phone]. CM CONTINUES TO WAIT ADMISSION DETERMINATION FROM [facility]. MAURICE NESS, CASE MANAGEMENT DCP- Discharge Planning Updated by [id number]: Mago Loaiza on 01/28/20 10:[address] CM called and spoke with Tanvi Francisco (son) [phone] regarding nursing home placement upon discharge. Tanvi stated that he would like for him to go to [facility] in [place] [facility]. CM contacted Cynthia [phone] with [facility]. She stated to fax clinical to her [phone] and she would forward to [facility] and she would come to see patient. CM will fax records. CM will will follow and assist as needed with discharge planning / needs. DCP- Discharge Planning Updated by [email or web address]: Mago Josse on 01/25/20 2:[address] CM received call this am from Gracie patient's girlfriend. She stated that the patient has a walker, cane and wheelchair at home. He did not have any home health services prior to admission. She stated that patient has not been in the hospital in last 30days. CM will continue to follow and assist as needed with discharge planning / needs. DCP- Discharge Planning Updated by [id number]: Mago Loaiza on 01/24/20 5:[address] Patient Name: KACI FRANCISCO Admission Status: ER Accout number: [id number] Admission Date: 01-24-2020 : 1950 Admission Diagnosis: Attending: KENYON FORREST Current LOS: 1 Anticipated DC Date: Planned Disposition: Home Primary Insurance: MEDICARE A & B Discharge Planning Comments: CM met with patient's daughter Tory to complete initial dc planning assessment. CM educated patient on the CM role and verbal consent given by patient to complete assessment. CM verified patient's address, phone number, and emergency contact phone numbers. Patient lives at home with girlfriend Gracie At discharge patient plans to return home. Uncertain of discharge needs at this time. Tory stated she didn't know if patient has medical equipment at home or home health. Tory stated that Gracie is on her way here. CM gave Tory a card with CM information on it to have Gracie to call. CM will continue to follow and will assist as needed with dc plans/needs. Street Roller Engineer: Mago Loaiza DCPIA - Discharge Planning Initial Assessment Updated by [id number]: Mago Loaiza on 01/24/20 6:38 pm * Is the patient Alert and Oriented? No * How many steps to enter\\exit or inside your home? 4-6 * PCP [facility] * Pharmacy [facility] * Preadmission Environment Home with Family * ADLs Independent * Other Equipment UNKNOWN * List name and contact numbers for known caregivers / representatives who currently or will assist patient after discharge: GRACIE FONTENOT - GIRLFRIEND- [phone] TANVI FRANCISCO - SON - [phone] TORY Castro DAUGHTER- [phone] * Verbal permission to speak to the caregivers and representatives has been obtained from the patient. N/A * Community resources currently utilized None * Additional services required to return to the preadmission environment? No * Can the patient safely return to the preadmission environment? Yes * Has this patient been hospitalized within the prior 30 days at any hospital? No Coverage Notice Reviewer: [id number] - Mago Loaiza Notice Issued Date-Time: 01/28/2020 11:10 Notice Type: Patient Choice Letter Notice Delivered To: Family Member Relationship to Patient: Son Fire Prevention Forester Name: TANVI FRANCISCO Delivery Method: PHONE - Phone Rhina Days: Prior Verbal Notification: Recipient Understood Notice: Yes Recipient Signature: Yes Med Rec Note Co-signed by Attending: Coverage Notice Comment: KENA BARRIOS Reviewer: [id number] - Maurice Ness Notice Issued Date-Time: 02/01/2020 13:20 Notice Type: IM Discharge Notice Notice Delivered To: Patient Relationship to Patient: Fire Prevention Forester Name: Delivery Method: HAND - Hand Delivered Rhina Days: Prior Verbal Notification: Recipient Understood Notice: Yes Recipient Signature: Yes Med Rec Note Co-signed by Attending: Coverage Notice Comment: Last DP export: 02/01/20 1:20 p Patient Name: KACI FRANCISCO Page 71338 at 1437 All edits/amendments must be made on the electronic document DICTATION DATE: 02/01/20 1437 PHOTOVOLTAIC TESTING TECHNICIAN: PAUL 02/01/20 1437 RPT#: [id number] SD DATE: STATUS: ADM IN [facility] [address] [place] [place] [address] END OF REPORT
--- NOTE | 2020-02-01 15:08 | NUR ---
I have reviewed this patient and I concur with the Shift Assessment completed by the Licensed Practical Nurse today this shift.
--- NOTE | 2020-02-01 15:13 | NUR ---
CALLED REPORT TO [facility].
--- NOTE | 2020-02-01 15:20 | NUR ---
CALLED [facility] AND THEY STATED IT WILL TAKE ABOUT 45MIN TO AN HOUR. I VERBALIZED UNDERSTANDING.
--- NOTE | 2020-02-01 15:30 | NUR ---
TELEMTRY DC'D. DISCHARGE INSTRUCTIONS GIVEN TO PT. PT HAS NO FURTHER QUESTIONS CHART COPY SIGNED.
--- NOTE | 2020-02-01 15:51 | NUR ---
S.T. STATES PT'S DIET CAN BE CHANGED FROM NECTAR THICK LIQUIDS TO THIN LIQUIDS. CALLED [facility] AND SPOKE TO NURSE AND NOTIFIED HER.
--- NOTE | 2020-02-01 16:03 | NUR ---
[facility] CALLED AND STATED THEY WILL NOT ACCEPT PT UNTI LHER URINATES. CALLED [facility] AND STATED THIS TO THEM AND THEY STATED TO CALL THEM WHEN PT DOES URINATE AND THEY WILL SEND THE AMBULANCE. I VERBALIZED UNDERSTANDING. I STATED THIS TO PT AND PT'S SISTER GAVE PT A URINAL AND A LARGE CUP OF WATER AND HE VERBALIZED UNDERSTANDING. PT TO NOTIFY ME WHEN HE URINATES.
--- NOTE | 2020-02-01 16:32 | NUR ---
PT URINATED IN URINAL. CALLED AND SPOKE WITH [facility] AND THEY TSTAED TO GIVE THEM 45MIN TO AN HOUR. I VERBALIZED UNDERSTANDING. CALLED [facility] AND SPOKE WITH NURSE AND STATED THAT PT URINATED HEY VERBALIZED UNDERSTNADING AND STATED TO SEND PT.
--- NOTE | 2020-02-01 18:14 | NUR ---
ems came to get pt via strecther and left wiht ems and all belongings with sister.
== END 2020-02-01 18:15 | DRG 871 ==
LOC: D.ER 05:39 → D.ICU 06:28 → D.M2 01-27 17:20
PROVIDERS: Emergency Medicine; Internal Medicine Nephrology; ADMIT Internal Medicine Nephrology; ATTEND Internal Medicine Nephrology
PROC: 05HM33Z Insertion of Infusion Device into Right Internal Jugular Vein, Percutaneous Approach (ICD-10-PCS; principal; 2020-01-24)
PROC: 5A1945Z Respiratory Ventilation, 24-96 Consecutive Hours (ICD-10-PCS; 2020-01-24)
DX: A41.9 Sepsis, unspecified organism (principal); I46.9 Cardiac arrest, cause unspecified; J96.00 Acute respiratory failure, unspecified whether with hypoxia or hypercapnia; G93.41 Metabolic encephalopathy; E11.10 Type 2 diabetes mellitus with ketoacidosis without coma; I50.31 Acute diastolic (congestive) heart failure; N17.0 Acute kidney failure with tubular necrosis; K72.00 Acute and subacute hepatic failure without coma; E87.2 Acidosis; E87.5 Hyperkalemia; J09.X2 Influenza due to identified novel influenza A virus with other respiratory manifestations; I48.91 Unspecified atrial fibrillation; E11.9 Type 2 diabetes mellitus without complications; I11.0 Hypertensive heart disease with heart failure